=== PATIENT | female | born 1985 | race Hispanic/Latino ===

== ENCOUNTER 2021-01-09 22:34 | Emergency (ER) | payer SELFPAY ==
--- OUTSIDE RECORDS SUMMARY | 2021-01-09 22:38 | XMS REPORT | Continuity of Care Document ---
:1985 Author Organization [facility] t Address [address] [place]. [address] [place] [id number] Care Team Providers Name Role Phone Erin Bearden Attending Clinician Problems This patient has no known problems. Allergies, Adverse Reactions, Alerts This patient has no known allergies or adverse reactions. Medications This patient has no known medications. Procedures This patient has no known procedures. Encounters Start End Encounter Admission Attending Care Care Encounter Source Date/Time Date/Time Type Type Clinicians Facility Department ID 2020-12-24 2020-12-24 Emergency VALERY Camargo [id number] 16:49:00 18:54:00 Ruthann Saenz [id number] [place] [id number] [place] [id number] Results This patient has no known results.
[2021-01-09 23:14] LABS: Absolute Lymphocytes (CBC) 1.3 K/uL (0.7-4.9); Hematocrit 40.9 % (36.0-45.0); Lymphocytes % 24.2 % (15.3-44.8); RBC Red Blood Cell Count 4.18 M/uL (3.86-4.86)
[2021-01-09 23:18] LABS: Protime INR 1.06
[2021-01-09 23:34] LABS: ALT/SGPT 41 U/L (12-78); AST/SGOT 69 U/L (15-37); Albumin 2.9 g/dL (3.4-5.0); Alkaline Phosphatase 118 U/L (45-117); BUN Blood Urea Nitrogen 5 mg/dL (7-18); Bicarbonate 23 mmol/L (21-32); Bilirubin Direct 0.1 mg/dL (0-0.2); Bilirubin Total 0.3 mg/dL (0.2-1.0); Glucose Level 87 mg/dL (74-106); Phenytoin (Dilantin) Level < 0.4 ug/mL (10.0-20.0); Potassium 3.8 mmol/L (3.5-5.1); Protein, Total 6.8 g/dL (6.4-8.2); Sodium Level 143 mmol/L (136-145); Valproic Acid (Depakene) Level < 3.0 ug/mL (50-100)
[2021-01-09] MEDS ORDERED: NA CHLORIDE 0.9% 1,000 ML ONE (23:56)
--- NOTE | 2021-01-10 00:56 | EDPHYS ---
Physician Documentation [facility] Name: Krysta Barrera Age: 35 yrs Sex: Female : 1985 Arrival Date: 01/09/2021 Time: 22:36 Bed 5 Private MD: ED Physician oSnny Jackson HPI: 01/09 23:25 This 35 yrs old Female presents to ER via EMS with complaints of Seizure. mh7 23:25 The patient presents after having a single isolated seizure, that lasted an unknown mh7 period of time. Character of seizure(s): Loss of consciousness: the patient experienced loss of consciousness, brief, Motor activity: generalized, shaking all over, Incontinence: none, Apnea: the patient did not experience apnea, Circulation: the patient did not experience evidence of pulse disturbance, Eye movements: are unknown. Seizure onset: today. Context: the seizure(s) was witnessed, by co-worker(s), occurred at work, occurred while the patient was working, Contributing factors: suspected or documented drug use, cocaine. Seizure Hx: Original onset: 3 year(s) ago. Associated injury: The patient did not suffer any apparent associated injury. Current symptoms: Currently, the patient is not experiencing any symptoms, the patient feels back to baseline. The patient has experienced similar episodes in the past, a few times. Patient reports having 3 seizures in the past that started a few years ago. She admits to cocaine use 2 days ago. She does not know the names of her medications states that they are in her purse which is still at her job.. 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 - Social history:: Smoking status: Patient reports the use of cigarette tobacco products, 7 sticks/day, Patient uses alcohol, every [address], cocaine. ROS: 23:25 Constitutional: Negative for fever, chills, and weight loss, Eyes: Negative for injury, mh7 pain, redness, and discharge, ENT: Negative for injury, pain, and discharge, Neck: Negative for injury, pain, and swelling, Cardiovascular: Negative for chest pain, palpitations, and edema, Respiratory: Negative for shortness of breath, cough, wheezing, and pleuritic chest pain, Abdomen/GI: Negative for abdominal pain, nausea, vomiting, diarrhea, and constipation, Back: Negative for injury and pain, : Negative for injury, bleeding, discharge, and swelling, MS/Extremity: Negative for injury and deformity, Skin: Negative for injury, rash, and discoloration. 23:25 Psych: Negative for depression, anxiety, suicide ideation, homicidal ideation, and hallucinations, Allergy/Immunology: Negative for hives, rash, and allergies, Endocrine: Negative for neck swelling, polydipsia, polyuria, polyphagia, and marked weight changes, Hematologic/Lymphatic: Negative for swollen nodes, abnormal bleeding, and unusual bruising. 23:25 Neuro: Negative for dizziness, gait disturbance, headache, hearing loss, numbness, speech changes, syncope, near syncope, tingling, tinnitus, tremor, visual changes, weakness. Exam: 23:25 Constitutional: This is a well developed, well nourished patient who is awake, alert, mh7 and in no acute distress. Head/Face: Normocephalic, atraumatic. Eyes: Pupils equal round and reactive to light, extra-ocular motions intact. Lids and lashes normal. Conjunctiva and sclera are non-icteric and not injected. Cornea within normal limits. Periorbital areas with no swelling, redness, or edema. ENT: Nares patent. No nasal discharge, no septal abnormalities noted. Tympanic membranes are normal and external auditory canals are clear. Oropharynx with no redness, swelling, or masses, exudates, or evidence of obstruction, uvula midline. Mucous membranes moist. Neck: Trachea midline, no thyromegaly or masses palpated, and no cervical lymphadenopathy. Supple, full range of motion without nuchal rigidity, or vertebral point tenderness. No Meningismus. Chest/axilla: Normal chest wall appearance and motion. Nontender with no deformity. No lesions are appreciated. Cardiovascular: Regular rate and rhythm with a normal S1 and S2. No gallops, murmurs, or rubs. Normal PMI, no JVD. No pulse deficits. Respiratory: Lungs have equal breath sounds bilaterally, clear to auscultation and percussion. No rales, rhonchi or wheezes noted. No increased work of breathing, no retractions or nasal flaring. Abdomen/GI: Soft, non-tender, with normal bowel sounds. No distension or tympany. No guarding or rebound. No evidence of tenderness throughout. Back: No spinal tenderness. No costovertebral tenderness. Full range of motion. Skin: Warm, dry with normal turgor. Normal color with no rashes, no lesions, and no evidence of cellulitis. MS/ Extremity: Pulses equal, no cyanosis. Neurovascular intact. Full, normal range of motion. Neuro: Awake and alert, GCS 15, oriented to person, place, time, and situation. Cranial nerves II-XII grossly intact. Motor strength 5/5 in all extremities. Sensory grossly intact. Cerebellar exam normal. Normal gait. Psych: Awake, alert, with orientation to person, place and time. Behavior, mood, and affect are within normal limits. Vital Signs: 22:30 BP 111 / 85; Pulse 112; Resp 16; Temp 98.1; Pulse Ox 99% ; Weight 55.34 kg; Height 5 rr5 ft. 5 in. (165.10 cm); Pain 0/10; 23:55 BP 121 / 70; Pulse 95; Resp 16; Pulse Ox 99% ; rr5 01/10 00:51 BP 125 / 62; Pulse 90; Resp 16; Pulse Ox 99% ; rr5 01/09 22:30 Body Mass Index 20.30 (55.34 kg, 165.10 cm) rr5 [place] Coma Score: 01/09 22:32 Eye Response: spontaneous(4). Verbal Response: confused(4). Motor Response: obeys rr5 commands(6). Total: 14. MDM: 01/10 00:51 Differential diagnosis: drug overdose, seizure, Pseudoseizures. Data reviewed: vital mh7 signs, nurses notes, EMS record, lab test result(s), CBC, electrolytes. Data interpreted: Pulse oximetry: on room air is 99 %. Interpretation: normal. Counseling: I had a detailed discussion with the patient and/or guardian regarding: the historical points, exam findings, and any diagnostic results supporting the discharge/admit diagnosis, lab results, to return to the emergency department if symptoms worsen or persist or if there are any questions or concerns that arise at home. Response to treatment: the patient's symptoms have resolved after treatment, the patient's blood pressure is in an acceptable range, mental status has returned to baseline, the patient no longer shows bradycardia, the patient is not short of breath, the patient is not tachycardic, the patient's pain is gone, the patient's temperature has normalized. Refusal of service: The patient/guardian displays adequate decision making capability and despite a detailed discussion of alternatives, benefits, risks, and consequences refuses: CT Scan, Medications, Urine, UDS. 00:55 Patient medically screened. [facility] 01/09 22:54 Order name: CBC with Diff [facility] 01/09 22:54 Order name: Basic Metabolic Panel [facility] 01/09 22:54 Order name: Protime (+inr); Complete Time: 23:34 [facility] 01/09 22:54 Order name: Ptt, Activated; Complete Time: 23:34 [facility] 01/09 22:54 Order name: LFT's; Complete Time: 23:44 [facility] 01/09 22:54 Order name: Acetaminophen; Complete Time: 23:44 [facility] 01/09 22:54 Order name: Salicylate; Complete Time: 23:44 [facility] 01/09 22:54 Order name: Dilantin; Complete Time: 23:44 [facility] 01/09 22:54 Order name: Carbamazepine (tegretol); Complete Time: 23:44 [facility] 01/09 22:54 Order name: Valproic Acid (depakote); Complete Time: 23:44 [facility] 01/09 22:54 Order name: CBC with Automated Diff; Complete Time: 23:34 [facility] 01/09 22:54 Order name: Basic Metabolic Panel; Complete Time: 23:44 [facility] 01/09 22:56 Order name: Glucose, Ancillary Testing; Complete Time: 23:34 [facility] 01/09 22:54 Order name: EKG - Nurse/Tech; Complete Time: 23:02 [facility] 01/10 00:08 Order name: Test, Serum; Complete Time: 00:54 [facility] Administered Medications: 01/09 23:41 Drug: NS 0.9% 1000 ml Route: IV; Rate: 1 bolus; Site: left antecubital; mg2 01/10 00:30 Follow up: Response: No adverse reaction; IV Status: Completed infusion; IV Intake: rr5 1000ml Disposition: 01/10/21 00:55 Patient has left against medical advice. Impression: Seizure. - Patients states they are going to Home. - Condition is Stable. - Discharge Instructions: Seizure, Adult, [id number]. Follow up: Private Physician; When: 1 - 2 days; Reason: Worsening of condition, Recheck today's complaints, Continuance of care, Re-evaluation by your physician. Follow up: Mayank Jimenez MD; When: 1 - 2 days; Reason: Worsening of condition, Recheck today's complaints. - Problem is an acute exacerbation. - Symptoms have improved. Signatures: Dispatcher [employer] EDMS Vinay Torres RN RN mg2 Ayaan Moreno RN RN rr5 Sonny Jackson MD MD mh7 Corrections: (The following items were deleted from the chart) 00:55 00:55 01/10/2021 00:55 Patients has left against medical advice. Impression: Seizure. mg2 Patient states they are going to Home. Condition is Stable. Follow up: Private Physician; When: 1 - 2 days; Reason: Worsening of condition, Recheck today's complaints, Continuance of care, Re-evaluation by your physician. Follow up: Mayank Jimenez; When: 1 - 2 days; Reason: Worsening of condition, Recheck today's complaints. Problem is an acute exacerbation. Symptoms have improved. mh7
--- NOTE | 2021-01-10 00:56 | ER ---
Nurse's Notes [facility] Name: Krysta Barrera Age: 35 yrs Sex: Female : 1985 Arrival Date: 01/09/2021 Time: 22:36 Bed 5 Private MD: Diagnosis: Seizure Presentation: 01/09 22:30 Chief complaint: EMS states: witnessed seizure from her co workers upward rolling of rr5 eyeball and stiffening of extremities lasted for a minute. when we arrived at the scene patient is on post ictal stage, confused, pupils dilated. 22:30 Coronavirus screen: Client denies travel out of the [place] in the last 14 days. At this rr5 time, the client does not indicate any symptoms associated with coronavirus-19. Ebola Screen: Patient negative for fever greater than or equal to 101.5 degrees Fahrenheit, and additional compatible Ebola Virus Disease symptoms Patient denies exposure to infectious person. Patient denies travel to an Ebola-affected area in the 21 days before illness onset. Initial Sepsis Screen: Does the patient meet any 2 criteria? No. Patient's initial sepsis screen is negative. Does the patient have a suspected source of infection? No. Patient's initial sepsis screen is negative. Risk Assessment: Do you want to hurt yourself or someone else? Patient reports no desire to harm self or others. Onset of symptoms was January 09, 2021 at 22:00. Care prior to arrival: IV initiated. 18 GA, in the right antecubital area, Glucose check: 91. 22:30 Method Of Arrival: EMS: [facility] rr5 22:30 Acuity: DENILSON 3 rr5 HOME HEALTH OCCUPATIONAL THERAPIST: 22:43 [facility] 2019 rr5 Historical: - Allergies: 22:39 No Known Allergies; rr5 - Home Meds: 22:39 seizure medication [Active]; rr5 - PMHx: 22:39 Anemia; Seizures; rr5 - PSHx: 22:39 None; rr5 - Immunization history:: Adult Immunizations up to date. - Social history:: Smoking status: Patient reports the use of cigarette tobacco products, 7 sticks/day, Patient uses alcohol, every [address], cocaine. Screenin:40 Abuse screen: Denies threats or abuse. Denies injuries from another. Nutritional rr5 screening: No deficits noted. Tuberculosis screening: No symptoms or risk factors identified. Fall Risk IV access (20 points). Mental Status- Overestimates/Forgets Limitations (15 pts.). Total [place] Fall Scale indicates Low Risk Score (25-44 pts). Fall prevention measures have been instituted. Side Rails Up X 2 Placed close to Nursing Station Frequent Obs/Assesments occuring As available Patient and Family Educated on Fall Prevention Program and strategies. Assessment: 22:30 General: Appears in no apparent distress. comfortable, Behavior is calm, cooperative, rr5 appropriate for age. Pain: Denies pain. Neuro: Level of Consciousness is awake, obeys commands, confused, Oriented to person, place. Cardiovascular: Capillary refill < 3 seconds Patient's skin is warm and dry. Respiratory: Airway is patent Respiratory effort is even, unlabored, Respiratory pattern is regular, symmetrical. GI: No signs and/or symptoms were reported involving the gastrointestinal system. : No signs and/or symptoms were reported regarding the genitourinary system. EENT: positive tongue bite. 22:30 Derm: Skin is intact, is healthy with good turgor, Skin temperature is warm. rr5 Musculoskeletal: Capillary refill < 3 seconds. 23:34 Reassessment: patient is refusing to give urine or to do more tests. mg2 23:57 Reassessment: Patient appears in no apparent distress at this time. Patient is alert, rr5 oriented x 3, equal unlabored respirations, skin warm/dry/pink. 01/10 00:48 Reassessment: patient refused to do further tests and treatment. provider informed and mg2 AMA advised. patient well informed about the risks. she said her boss is waiting outside and she has no other ride, AMA signed by the patient. 00:51 Reassessment: Patient appears in no apparent distress at this time. AMA form signed no rr5 complaints made. Vital Signs: 01/09 22:30 BP 111 / 85; Pulse 112; Resp 16; Temp 98.1; Pulse Ox 99% ; Weight 55.34 kg; Height 5 rr5 ft. 5 in. (165.10 cm); Pain 0/10; 23:55 BP 121 / 70; Pulse 95; Resp 16; Pulse Ox 99% ; rr5 01/10 00:51 BP 125 / 62; Pulse 90; Resp 16; Pulse Ox 99% ; rr5 01/09 22:30 Body Mass Index 20.30 (55.34 kg, 165.10 cm) rr5 [place] Coma Score: 01/09 22:32 Eye Response: spontaneous(4). Verbal Response: confused(4). Motor Response: obeys rr5 commands(6). Total: 14. ED Course: 22:35 Maintain EMS IV. Dressing intact. Good blood return noted. Site clean \T\ dry. Gauge \T\ rr 5 site: G18 right AC. 22:36 Patient arrived in ED. rr5 22:39 Triage completed. rr5 22:40 Arm band placed on right wrist. rr5 22:42 Sonny Jackson MD is Attending Physician. mh7 22:42 Patient has correct armband on for positive identification. Bed in low position. Call rr5 light in reach. Side rails up X2. Seizure precautions initiated. nuclear monitoring technician on. Pulse ox on. NIBP on. 22:45 Vinay Torres, ANKUSH is Primary Nurse. mg2 22:45 No provider procedures requiring assistance completed. Inserted saline lock: 22 gauge mg2 in left antecubital area, using aseptic technique. Blood collected. 01/10 00:50 IV discontinued, intact, bleeding controlled, No redness/swelling at site. Pressure rr5 dressing applied. 00:54 Mayank Jimenez MD is Referral Physician. health system Administered Medications: 01/09 23:41 Drug: NS 0.9% 1000 ml Route: IV; Rate: 1 bolus; Site: left antecubital; mg2 01/10 00:30 Follow up: Response: No adverse reaction; IV Status: Completed infusion; IV Intake: rr5 1000ml Intake: 00:30 IV: 1000ml; Total: 1000ml. rr5 Outcome: 00:50 AMA AMA form signed rr5 00:50 Condition: stable 00:50 Discharge instructions given to patient, Instructed on discharge instructions, follow up and referral plans. Demonstrated understanding of instructions, follow-up care. 00:55 Patient left the ED. mg2 Signatures: Vinay Torres, ANKUSH RN mg2 Ayaan Moreno RN RN rr5 Sonny Jackson MD MD 7
[2021-01-10 01:35] VITALS: O2SAT 99
[2021-01-10 01:36] VITALS: BP 125/62
== END 2021-01-10 00:55 | disposition left against medical advice (07) ==
LOC: ER 22:34
DX: G40.909 Epilepsy, unspecified, not intractable, without status epilepticus (principal); F17.210 Nicotine dependence, cigarettes, uncomplicated
CPT/HCPCS: 36415; 80048; 80076; 80156; 80164; 80185; 80329; 82947; 84703; 85025; 85610; 85730; 93005; 96360; 99284; J7030

== ENCOUNTER 2021-05-27 21:38 | Emergency (ER) | payer SELFPAY ==
--- OUTSIDE RECORDS SUMMARY | 2021-05-27 21:42 | XMS REPORT | Continuity of Care Document ---
:1985 Author Organization [facility] t Address [address] [place] [address] Dr. Rutherford [address] [place] [id number] Care Team Providers Name Role Phone Erin [...] Clinicians Facility Department ID 2020-12-24 2020-12-24 Emergency Mary Jo [facility] [id number] 16:49:00 18:54:00 Ruthann Saenz [id number] [place] [id number] [place] [id number] [id number] Results This patient has no known results.
[2021-05-27 22:35] LABS: Basophils % 0.6 % (0-1.3); Hematocrit 48.5 % (36.0-45.0); MPV 8.1 fL (7.6-11.3); RBC Red Blood Cell Count 4.92 M/uL (3.86-4.86)
[2021-05-27] MEDS ORDERED: ONDANSETRON 4 MG/2 ML VIAL ONE (22:54)
[2021-05-27] MEDS ORDERED: NA CHLORIDE 0.9% 1,000 ML ONE (22:54)
[2021-05-27] MEDS ORDERED: PANTOPRAZOLE 40 MG INJ ONE (22:55)
[2021-05-27 23:06] LABS: ALT/SGPT 53 U/L (12-78); AST/SGOT 85 U/L (15-37); Albumin 3.9 g/dL (3.4-5.0); Alkaline Phosphatase 145 U/L (45-117); BUN Blood Urea Nitrogen 10 mg/dL (7-18); Bicarbonate 32 mmol/L (21-32); Bilirubin Direct 0.5 mg/dL (0-0.2); Bilirubin Total 1.5 mg/dL (0.2-1.0); Glucose Level 117 mg/dL (74-106); Lipase 127 U/L (73-393); Protein, Total 8.3 g/dL (6.4-8.2); Sodium Level 135 mmol/L (136-145)
[2021-05-27 23:07] LABS: Potassium 2.7 mmol/L (3.5-5.1)
[2021-05-27] MEDS ORDERED: POTASSIUM CL SA 10 MEQ TAB PO ONE ×2 (23:33→23:34)
--- NOTE | 2021-05-27 23:39 | EDPHYS ---
Physician Documentation [facility] Name: Krysta Barrera Age: 36 yrs Sex: Female : 1985 Arrival Date: 05/27/2021 Time: 21:41 Bed 16 Private MD: ED Physician Jayson Jeter HPI: 05/27 23:26 This 36 yrs old Female presents to ER via Ambulatory with complaints of kb Vomiting, Decreased Appetite, Abdominal Pain. 23:26 The patient presents to the emergency department with nausea, vomiting, abdominal pain. kb Severity of symptoms: At their worst the symptoms were moderate in the emergency department the symptoms are unchanged. The patient has experienced similar episodes in the past, a few times. The patient has not recently seen a physician. 23:28 Onset: The symptoms/episode began/occurred 36 hour(s) ago. Possible causes: unknown. kb The symptoms are aggravated by nothing. The symptoms are alleviated by nothing. Associated signs and symptoms: Pertinent positives: abdominal pain, nausea, vomiting, Pertinent negatives: anorexia, belching, constipation, diarrhea, dysuria, fever, flatulence, GI bleeding, hematuria, vaginal discharge. Pt reports epigastric pain, nausea and vomiting that started 36 hours ago. States she is unable to tolerate anything by mouth.. 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 Flu vaccine is not up to date. - Social history:: Smoking status: Patient reports the use of cigarette tobacco products, smokes one-half pack cigarettes per day. ROS: 23:24 Constitutional: Negative for fever, chills, and weight loss. kb 23:24 Abdomen/GI: Positive for abdominal pain, nausea and vomiting, Negative for diarrhea. 23:24 All other systems are negative. Exam: 23:25 Constitutional: This is a well developed, well nourished patient who is awake, alert, kb and in no acute distress. Head/Face: Normocephalic, atraumatic. ENT: Moist Mucous membranes Cardiovascular: Regular rate and rhythm with a normal S1 and S2. No gallops, murmurs, or rubs. No pulse deficits. Respiratory: Respirations even and unlabored. No increased work of breathing, no retractions or nasal flaring. Skin: Warm, dry with normal turgor. Normal color. MS/ Extremity: Pulses equal, no cyanosis. Neurovascular intact. Full, normal range of motion. Neuro: Awake and alert, GCS 15, oriented to person, place, time, and situation. Moves all extremities. Normal gait. Psych: Awake, alert, with orientation to person, place and time. Behavior, mood, and affect are within normal limits. 23:25 Abdomen/GI: Inspection: abdomen appears normal, Bowel sounds: normal, in all quadrants, Palpation: soft, in all quadrants, mild abdominal tenderness, in the epigastric area. Vital Signs: 21:47 BP 124 / 95; Pulse 101; Resp 18 S; Temp 97.5(TE); Pulse Ox 98% on R/A; Weight 52.16 kg ca1 (R); Height 5 ft. 5 in. (165.10 cm) (R); Pain 8/10; 22:28 BP 119 / 87; Pulse 74; Resp 16; Temp 98.8(O); Pulse Ox 99% on R/A; Pain 9/10; fu 21:47 Body Mass Index 19.14 (52.16 kg, 165.10 cm) ca1 MDM: 22:02 Patient medically screened. kb 23:23 Data reviewed: vital signs, nurses notes. Data interpreted: Pulse oximetry: on room air kb is 99 %. Interpretation: normal. 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 23:44 ED course: Pt is feeling better. Will follow up with her GI tomorrow . kb 05/27 22:02 Order name: Basic Metabolic Panel; Complete Time: 23:08 kb 05/27 22:02 Order name: CBC with Diff; Complete Time: 22:37 kb 05/27 22:02 Order name: Hepatic Function; Complete Time: 23:08 kb 05/27 22:02 Order name: Lipase; Complete Time: 23:08 kb 05/27 22:02 Order name: IV Saline Lock; Complete Time: 22:21 kb 05/27 22:02 Order name: Labs collected and sent; Complete Time: 22:21 kb Administered Medications: 22:42 Drug: NS 0.9% 1000 ml Route: IV; Rate: 1000 ml; Site: left antecubital; fu 23:16 Follow up: Response: No adverse reaction; IV Intake: 1000ml fu 05/28 00:00 Follow up: Response: No adverse reaction; IV Intake: 1000ml fu 05/27 22:42 Drug: Zofran (Ondansetron) 4 mg Route: IVP; Site: left antecubital; fu 23:42 Follow up: Response: Nausea is decreased fu 22:42 Drug: ProTONIX (pantoprazole) 40 mg Route: IVP; Site: left antecubital; fu 23:42 Follow up: Response: No adverse reaction fu 23:16 Drug: Potassium Chloride 40 mEq Route: PO; fu 05/28 00:14 Follow up: Response: No adverse reaction fu Disposition Summary: 05/27/21 23:38 Discharge Ordered Location: Home kb Condition: Stable kb Diagnosis - Nausea with vomiting, unspecified kb - Hypokalemia kb Followup: kb - With: Emergency Department - When: As needed - Reason: Worsening of condition Followup: kb - With: Private Physician - When: 2 - 3 days - Reason: Recheck today's complaints, Continuance of care, Re-evaluation by your physician Discharge Instructions: - Discharge Summary Sheet kb - Nausea and Vomiting, Adult, [id number] kb Forms: - Medication Reconciliation Form kb - Thank You Letter kb - Antibiotic Education kb - Prescription Opioid Use kb Prescriptions: - Zofran 4 mg Oral Tablet - take 1 tablet by ORAL route every 6 hours As needed; 20 tablet; Refills: 0, kb Product Selection Permitted - dicyclomine 20 mg Oral Tablet - take 1 tablet by ORAL route 4 times per day As needed; 20 tablet; Refills: 0, kb Product Selection Permitted Addendum: 05/30/2021 15:27 Co-signature as Attending Physician, Jayson Jeter MD I agree with the assessment and t w4 plan of care. Signatures: Dispatcher [employer] Victoria Guardado, SOLUTION MAKE UP OPERATOR-C SOLUTION MAKE UP OPERATOR-Danny Barrow, RN RN Jayson Bowen MD MD tw4 Radha Ybarra RN RN ca1 Corrections: (The following items were deleted from the chart) 05/27 23:29 23:26 The patient has not experienced similar symptoms in the past, kb kb
--- NOTE | 2021-05-27 23:39 | ER ---
Nurse's Notes [facility] Name: Krysta Barrera Age: 36 yrs Sex: Female : 1985 Arrival Date: 05/27/2021 Time: 21:41 Bed 16 Private MD: Diagnosis: Nausea with vomiting, unspecified;Hypokalemia Presentation: 05/27 21:47 Chief complaint: Patient states: I am not able to keep nothing down for the past 36 ca1 hrs. N/V/Abdominal pain x 2 days. Has a GI issues, reflux. Coronavirus screen: Client denies travel out of the [place] in the last 14 days. nausea, vomiting. Client presents with at least one sign or symptom that may indicate coronavirus-19. Standard/surgical mask placed on the client. Provider contacted for isolation considerations. Ebola Screen: Patient negative for fever greater than or equal to 101.5 degrees Fahrenheit, and additional compatible Ebola Virus Disease symptoms Patient denies exposure to infectious person. Patient denies travel to an Ebola-affected area in the 21 days before illness onset. No symptoms or risks identified at this time. Initial Sepsis Screen: Does the patient meet any 2 criteria? No. Patient's initial sepsis screen is negative. Does the patient have a suspected source of infection? No. Patient's initial sepsis screen is negative. Risk Assessment: Do you want to hurt yourself or someone else? Patient reports no desire to harm self or others. Onset of symptoms was May 27, 2021. 21:47 Method Of Arrival: Ambulatory ca1 21:47 Acuity: DENILSON 3 ca1 GRAIN COMBINER: 21:50 LMP N/A - Irregular menses ca1 Historical: - Allergies: 21:50 Unknown medication to increase appetite; ca1 - Home Meds: 21:50 seizure medication [Active]; ca1 - PMHx: 21:50 Anemia; Seizures; ca1 - PSHx: 21:50 None; ca1 - Immunization history:: Client reports having NOT received the Covid vaccine. Flu vaccine is not up to date. - Social history:: Smoking status: Patient reports the use of cigarette tobacco products, smokes one-half pack cigarettes per day. Screenin:30 Abuse screen: Denies threats or abuse. Nutritional screening: No deficits noted. fu Tuberculosis screening: No symptoms or risk factors identified. Fall Risk None identified. Assessment: 22:22 General: Appears uncomfortable, Behavior is calm, cooperative, appropriate for age, fu Reports Denies fever. Pain: Complains of pain in abdomen Pain does not radiate. Pain currently is 8 out of 10 on a pain scale. Pain: Quality of pain is described as burning, Pain began 36 hours ago Is intermittent. Neuro: Level of Consciousness is awake, alert, obeys commands, Oriented to person, place, time, situation, Moves all extremities. Gait is steady, Speech is normal, Facial symmetry appears normal. Cardiovascular: Denies chest pain, syncope. Respiratory: Respiratory effort is even, unlabored, Respiratory pattern is regular. GI: Abdomen is flat, Last BM was May 26, 2021. Reports nausea, vomiting, abdominal pain. : No signs and/or symptoms were reported regarding the genitourinary system. EENT: No signs and/or symptoms were reported regarding the EENT system. Derm: Skin is intact, Skin is normal. 23:19 Reassessment: Patient appears in no apparent distress at this time. Patient and/or fu family updated on plan of care and expected duration. Pain level reassessed. Patient is alert, oriented x 3, equal unlabored respirations, skin warm/dry/pink. nausea improving as stated by patient. Vital Signs: 21:47 BP 124 / 95; Pulse 101; Resp 18 S; Temp 97.5(TE); Pulse Ox 98% on R/A; Weight 52.16 kg ca1 (R); Height 5 ft. 5 in. (165.10 cm) (R); Pain 8/10; 22:28 BP 119 / 87; Pulse 74; Resp 16; Temp 98.8(O); Pulse Ox 99% on R/A; Pain 9/10; fu 21:47 Body Mass Index 19.14 (52.16 kg, 165.10 cm) ca1 ED Course: 21:41 Patient arrived in ED. es 21:50 Triage completed. ca1 21:50 Arm band placed on right wrist. ca1 22:01 [facility] Cat [facility]C [facility] kb 22:01 Jayson Jeter MD is Attending Physician. kb 22:06 Danny Scott RN is Primary Nurse. fu 22:15 Inserted saline lock: 22 gauge in left antecubital area, using aseptic technique. Blood fu collected. 22:21 Basic Metabolic Panel Sent. fu 22:21 CBC with Diff Sent. fu 22:21 Hepatic Function Sent. fu 22:21 Lipase Sent. fu 22:30 Patient has correct armband on for positive identification. Bed in low position. Call fu light in reach. Side rails up X 1. Pulse ox on. NIBP on. Warm blanket given. 05/28 00:00 No provider procedures requiring assistance completed. IV discontinued, bleeding fu controlled, Pressure dressing applied. Administered Medications: 05/27 22:42 Drug: NS 0.9% 1000 ml Route: IV; Rate: 1000 ml; Site: left antecubital; fu 23:16 Follow up: Response: No adverse reaction; IV Intake: 1000ml fu 05/28 00:00 Follow up: Response: No adverse reaction; IV Intake: 1000ml fu 05/27 22:42 Drug: Zofran (Ondansetron) 4 mg Route: IVP; Site: left antecubital; fu 23:42 Follow up: Response: Nausea is decreased fu 22:42 Drug: ProTONIX (pantoprazole) 40 mg Route: IVP; Site: left antecubital; fu 23:42 Follow up: Response: No adverse reaction fu 23:16 Drug: Potassium Chloride 40 mEq Route: PO; fu 05/28 00:14 Follow up: Response: No adverse reaction fu Intake: 05/27 23:16 IV: 1000ml; Total: 1000ml. fu 05/28 00:00 IV: 1000ml; Total: 2000ml. fu Outcome: 05/27 23:38 Discharge ordered by MD. fernandez 05/28 00:15 Patient left the ED. fu Signatures: Victoria Cat FNP-C FNP-Ángela Kaur Felix, RN RN fu Radha Ybarra RN RN ca1
[2021-05-28 01:48] VITALS: BP 119/87; TEMP 98.8; O2SAT 99
== END 2021-05-28 00:15 | disposition home or self-care (01) ==
LOC: ER 21:38
DX: E87.6 Hypokalemia (principal); G40.909 Epilepsy, unspecified, not intractable, without status epilepticus; F17.210 Nicotine dependence, cigarettes, uncomplicated
CPT/HCPCS: 36415; 80048; 80076; 83690; 85025; 96374; 96375; 99284; C9113; J2405; J7030

== ENCOUNTER 2021-05-30 19:10 | Emergency (ER) | payer SELFPAY ==
--- OUTSIDE RECORDS SUMMARY | 2021-05-30 19:21 | XMS REPORT | Continuity of Care Document ---
:1985 Author Organization [facility] t Address [address] [place] [address] Dr. Rutherford [address] [place] [id number] Care Team Providers Name Role Phone Erin [...] Department ID 2020-12-24 2020-12-24 Emergency Mary Jo [facility] [id number] 16:49:00 18:54:00 Ruthann Saenz [id number] [place] [id number] [place] [id number] [id number] Results This patient has no known results.
[2021-05-30 20:10] LABS: Absolute Lymphocytes (CBC) 0.8 K/uL (0.7-4.9); Basophils % 1.3 % (0-1.3); Hematocrit 40.8 % (36.0-45.0); Lymphocytes % 18.4 % (15.3-44.8); MPV 8.1 fL (7.6-11.3); RBC Red Blood Cell Count 4.25 M/uL (3.86-4.86)
[2021-05-30 20:22] LABS: Albumin 3.3 g/dL (3.4-5.0); Bilirubin Direct 0.5 mg/dL (0-0.2); Bilirubin Total 1.1 mg/dL (0.2-1.0); Protein, Total 7.1 g/dL (6.4-8.2)
[2021-05-30 20:26] LABS: Potassium 2.5 mmol/L (3.5-5.1)
[2021-05-30 20:28] LABS: Protime INR 1.03
[2021-05-30] MEDS ORDERED: FAMOTIDINE 20 MG/2 ML VIAL IV ONE (20:30)
[2021-05-30] MEDS ORDERED: NA CHLORIDE 0.9% 1,000 ML ONE ×2 (20:30→22:16)
[2021-05-30] MEDS ORDERED: ONDANSETRON 4 MG/2 ML VIAL ONE (20:30)
[2021-05-30] MEDS ORDERED: MORPHINE 2 MG/ML SYR ONE (20:52)
--- NOTE | 2021-05-30 21:15 | RAD REPORT ---
EXAM DESCRIPTION: CT - Head Brain Wo Cont - 05/30/2021 8:48 pm CLINICAL HISTORY: Syncope;Trauma COMPARISON: No comparisons TECHNIQUE: Axial 5 mm thick images of the head were obtained without IV contrast. All CT scans are performed using dose optimization technique as appropriate and may include automated exposure control or mA/KV adjustment according to patient size. FINDINGS: No intracranial hemorrhage, mass, edema or shift of mid-line structures. No acute infarcti on changes seen. No abnormal extra-axial fluid collections. Ventricles are normal. Mastoid air cells and visualized portions of the paranasal sinuses are clear. No acute bony findings. IMPRESSION: Negative non-contrast CT head examination.
[2021-05-30] MEDS ORDERED: POTASSIUM 25 MEQ EFFERV TAB ONE (21:18)
[2021-05-30] MEDS ORDERED: KCL 20 MEQ/100 mL IVPB 20 MEQ/100 ML BAG IV ONE (21:18)
--- NOTE | 2021-05-30 21:18 | RAD REPORT ---
EXAM DESCRIPTION: CT - Abdomen Pelvis W Contrast - 05/30/2021 8:52 pm CLINICAL HISTORY: Abd pain;Nausea / vomiting COMPARISON: No comparisons TECHNIQUE: Biphasic, helical CT imaging of the abdomen and pelvis was performed following 100 ml non -ionic IV contrast. No oral contrast administered. All CT scans are performed using dose optimization technique as appropriate and may include automated exposure control or mA/KV adjustment according to patient size. FINDINGS: No suspicious findings in the lung bases. The liver, spleen, and pancreas show no suspicious focal findings. Mild diffuse fatty infiltration of the liver is present. Gallbladder and biliary tree are also without suspicious finding. Symmetric renal function is seen with no hydronephrosis or suspicious renal mass. No pyelonephritis o r acute parenchymal process. No bladder abnormalities. No adrenal abnormalities. Uterus and ovaries s how no suspicious findings. No dilated bowel loops or bowel wall thickening. Appendix is normal. No free air, free fluid or infla mmatory stranding. No hernia, mass or bulky lymphadenopathy. No suspicious bony findings. IMPRESSION: Contrast enhanced CT abdomen and pelvis showing no significant or suspicious finding.
[2021-05-30] MEDS ORDERED: NA CHLORIDE 0.9% 250 ML ONE (21:53)
[2021-05-30 22:05] LABS: Urine Blood Negative (Negative); Urine Glucose Negative (Negative); Urine Protein Negative (Negative); Urine pH 7.5 (5.0-7.0)
--- NOTE | 2021-05-30 22:06 | RAD REPORT ---
EXAM DESCRIPTION: RAD - Chest Single View - 05/30/2021 9:27 pm CLINICAL HISTORY: syncope COMPARISON: None TECHNIQUE: AP portable chest image was obtained 05/30/2021 9:27 pm . FINDINGS: Lungs are clear. Nipple shadows overlie the lower chest. Heart and vasculature are normal. No measurable pleural effusion and no pneumothorax. No acute bony abnormality seen. No acute aortic findings suspected. IMPRESSION: No acute cardiopulmonary process.
[2021-05-30 22:33] LABS: Barbiturates NEGATIVE (NEGATIVE); Benzodiazepines NEGATIVE (NEGATIVE); Cocaine NEGATIVE (NEGATIVE); METHAMPHETAM NEGATIVE (NEGATIVE); Methadone NEGATIVE (NEGATIVE); Opiates NEGATIVE (NEGATIVE); Phencyclidine NEGATIVE (NEGATIVE); THC Cannibis NEGATIVE (NEGATIVE)
[2021-05-30 23:18] LABS: Urine Bacteria 20-50 /HPF (<20); Urine Mucus 1+ /HPF (NONE SEEN); Urine RBC <5 /HPF (NONE SEEN)
--- NOTE | 2021-05-30 23:34 | EDPHYS ---
Physician Documentation [facility] Name: Krysta Barrera Age: 36 yrs Sex: Female : 1985 Arrival Date: 05/30/2021 Time: 19:20 Bed 18 Private MD: ED Physician Sonny Jackson HPI: 05/30 20:25 This 36 yrs old Female presents to ER via EMS with complaints of Dizziness. mh7 20:25 The patient presents with dizziness, feeling faint, lightheadedness. Onset: The mh7 symptoms/episode began/occurred just prior to arrival, today. Context: occurred at work, occurred while the patient was standing, just prior to the episode the patient experienced abdominal pain, lightheadedness, nausea. Modifying factors: The symptoms are alleviated by nothing, the symptoms are aggravated by nothing. Associated signs and symptoms: Pertinent positives: abdominal pain, head injury, nausea, syncope, Pertinent negatives: agitation, ataxia, blurred vision, chest pain, combativeness, confusion, diaphoresis, focal weakness, numbness, palpitations, seizure, shortness of breath, tingling, vomiting. Severity of symptoms: At their worst the symptoms were moderate today, in the emergency department the symptoms have improved moderately. Patient's baseline: Neuro: alert and fully oriented, Motor: no deficits, Ambulation: walks without assistance, Speech: normal. The patient has been recently seen at the [facility] Emergency Department, this week. 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 - Social history:: Smoking status: Patient reports the use of cigarette tobacco products, 3 STICKS. ROS: 20:25 Constitutional: Negative for fever, chills, and weight loss, Eyes: Negative for injury, mh7 pain, redness, and discharge, ENT: Negative for injury, pain, and discharge, Neck: Negative for injury, pain, and swelling, Cardiovascular: Negative for chest pain, palpitations, and edema, Respiratory: Negative for shortness of breath, cough, wheezing, and pleuritic chest pain, Back: Negative for injury and pain, : Negative for injury, bleeding, discharge, and swelling, MS/Extremity: Negative for injury and deformity, Skin: Negative for injury, rash, and discoloration, Neuro: Negative for headache, weakness, numbness, tingling, and seizure, Psych: Negative for depression, anxiety, suicide ideation, homicidal ideation, and hallucinations, Allergy/Immunology: Negative for hives, rash, and allergies, Endocrine: Negative for neck swelling, polydipsia, polyuria, polyphagia, and marked weight changes, Hematologic/Lymphatic: Negative for swollen nodes, abnormal bleeding, and unusual bruising. Exam: 20:25 Head/Face: Normocephalic, atraumatic. Eyes: Pupils equal round and reactive to light, mh7 extra-ocular motions intact. Lids and lashes normal. Conjunctiva and sclera are non-icteric and not injected. Cornea within normal limits. Periorbital areas with no swelling, redness, or edema. Neck: Trachea midline, no thyromegaly or masses palpated, and no cervical lymphadenopathy. Supple, full range of motion without nuchal rigidity, or vertebral point tenderness. No Meningismus. Chest/axilla: Normal chest wall appearance and motion. Nontender with no deformity. No lesions are appreciated. Cardiovascular: Regular rate and rhythm with a normal S1 and S2. No gallops, murmurs, or rubs. Normal PMI, no JVD. No pulse deficits. Respiratory: Lungs have equal breath sounds bilaterally, clear to auscultation and percussion. No rales, rhonchi or wheezes noted. No increased work of breathing, no retractions or nasal flaring. 20:25 Back: No spinal tenderness. No costovertebral tenderness. Full range of motion. Skin: Warm, dry with normal turgor. Normal color with no rashes, no lesions, and no evidence of cellulitis. MS/ Extremity: Pulses equal, no cyanosis. Neurovascular intact. Full, normal range of motion. Neuro: Awake and alert, GCS 15, oriented to person, place, time, and situation. Cranial nerves II-XII grossly intact. Motor strength 5/5 in all extremities. Sensory grossly intact. Cerebellar exam normal. Normal gait. Psych: Awake, alert, with orientation to person, place and time. Behavior, mood, and affect are within normal limits. 20:25 Constitutional: The patient appears in no acute distress, alert, awake, uncomfortable. 20:25 Abdomen/GI: Inspection: abdomen appears normal, Bowel sounds: normal, in all quadrants, Palpation: moderate abdominal tenderness, in the epigastric area, mass, is not appreciated, rebound tenderness, is not appreciated, voluntary guarding, is not appreciated, involuntary guarding, is not appreciated, no appreciated organomegaly, Rectal exam: the exam is deferred, because of patient request, Indicators: McBurney's point is not tender, Francis's sign is negative, Rovsing's sign is negative, Obturator sign is negative, Psoas sign is negative, Liver: no appreciated palpable abnormalities, Hernia: not appreciated. Vital Signs: 19:20 BP 131 / 90; Pulse 77; Resp 16; Temp 98; Pulse Ox 98% ; Weight 50.35 kg; Height 5 ft. 5 rr5 in. (165.10 cm); Pain 0/10; 21:00 BP 116 / 95; Pulse 80; Resp 17; Pulse Ox 99% ; rr5 22:00 BP 124 / 89; Pulse 76; Resp 17; Pulse Ox 100% ; rr5 23:00 BP 115 / 69; Pulse 70; Resp 15; Pulse Ox 99% ; rr5 05/31 00:00 BP 126 / 80; Pulse 70; Resp 19; Pulse Ox 98% ; rr5 05/30 19:20 Body Mass Index 18.47 (50.35 kg, 165.10 cm) rr5 MDM: 05/30 23:30 Differential diagnosis: cardiac arrhythmia, hypovolemia, idiopathic dizziness, mh7 near-syncope, , syncope, vertigo, Dehydration. Data reviewed: vital signs, nurses notes, lab test result(s), cardiac enzymes, CBC, electrolytes, urinalysis, urine drug screen, EKG, radiologic studies, CT scan, plain films. Data interpreted: Pulse oximetry: on room air is 98 %. Interpretation: normal. Counseling: I had a detailed discussion with the patient and/or guardian regarding: the historical points, exam findings, and any diagnostic results supporting the discharge/admit diagnosis, lab results, radiology results, the need for outpatient follow up, to return to the emergency department if symptoms worsen or persist or if there are any questions or concerns that arise at home. Response to treatment: the patient's symptoms have resolved after treatment, the patient's blood pressure is in an acceptable range, mental status has returned to baseline, the patient no longer shows bradycardia, the patient is not short of breath, the patient is not tachycardic, the patient's pain is gone, the patient's temperature has normalized, the patient is now symptom free, patient is well hydrated. 23:34 Patient medically screened. [facility] 05/30 19:27 Order name: Basic Metabolic Panel; Complete Time: 20:33 [facility] 05/30 19:27 Order name: CBC with Diff; Complete Time: 20:33 [facility] 05/30 19:27 Order name: Hepatic Function; Complete Time: 20:33 [facility] 05/30 19:27 Order name: Lipase; Complete Time: 20:33 [facility] 05/30 20:04 Order name: UDS; Complete Time: 22:35 [facility] 05/30 20:11 Order name: Troponin (emerg Dept Use Only) [facility] 05/30 20:11 Order name: Protime (+inr) [facility] 05/30 20:11 Order name: Ptt, Activated [facility] 05/30 20:12 Order name: Troponin (Emerg Dept Use Only); Complete Time: 22:35 [facility] 05/30 20:12 Order name: Protime (+INR); Complete Time: 20:33 [facility] 05/30 20:12 Order name: PTT, Activated Partial Thromb; Complete Time: 20:33 [facility] 05/30 20:13 Order name: Test, Serum [facility] 05/30 20:14 Order name: Test Serum, Qualitat; Complete Time: 22:35 [facility] 05/30 22:05 Order name: Urine Dipstick-Ancillary; Complete Time: 22:35 [facility] 05/30 19:27 Order name: IV Saline Lock; Complete Time: 19:27 [facility] 05/30 19:27 Order name: Labs collected and sent; Complete Time: 19:27 [facility] 05/30 20:04 Order name: Urine Dipstick-Ancillary (obtain specimen); Complete Time: 22:18 [facility] 05/30 20:04 Order name: EKG - Nurse/Tech; Complete Time: 20:29 [facility] 05/30 20:11 Order name: Chest Single View XRAY; Complete Time: 22:35 [facility] 05/30 20:11 Order name: CT Head Brain wo Cont; Complete Time: 22:35 [facility] 05/30 20:11 Order name: CT Abd/Pelvis - IV Contrast Only; Complete Time: 22:35 [facility] 05/30 22:10 Order name: Urine Microscopic Only [facility] 05/30 22:10 Order name: Urine Microscopic Only; Complete Time: 23:26 EDMS Administered Medications: 20:25 Drug: Pepcid (famotidine) 20 mg Route: IVP; Site: left antecubital; rr5 21:20 Follow up: Response: No adverse reaction rr5 20:28 Drug: Zofran (Ondansetron) 4 mg Route: IVP; Site: left antecubital; rr5 21:25 Follow up: Response: No adverse reaction rr5 20:29 Drug: NS 0.9% 1000 ml Route: IV; Rate: 1000 ml; Site: left antecubital; rr5 21:30 Follow up: Response: No adverse reaction; IV Status: Completed infusion; IV Intake: rr5 1000ml 20:35 Drug: morphine 2 mg {Note: rass 0.} Route: IVP; Site: left antecubital; rr5 21:35 Follow up: Response: No adverse reaction; Pain is decreased; RASS: Alert and Calm (0) rr5 21:05 Drug: Potassium Effervescent Tablet 50 mEq Route: PO; rr5 22:00 Follow up: Response: No adverse reaction rr5 21:06 Drug: Potassium Chloride 20 mEq Route: IV; Rate: calculated rate; Site: right hand; rr5 23:00 Follow up: Response: No adverse reaction; IV Status: Completed infusion; IV Intake: rr5 100ml 23:58 Drug: Cipro (ciprofloxacin) 500 mg Route: PO; rr5 05/31 00:10 Follow up: Response: No adverse reaction rr5 Disposition Summary: 05/30/21 23:34 Discharge Ordered Location: Home [facility] Problem: an ongoing problem [facility] Symptoms: have improved [facility] Condition: Stable [facility] Diagnosis - Dizziness and giddiness mh7 - Nausea with vomiting, unspecified mh7 - Hypokalemia mh7 - UTI/ Urinary tract infection, site not specified [facility] - Upper abdominal pain, unspecified [facility] Followup: [facility] - With: Private Physician - When: 1 - 2 days - Reason: Worsening of condition, Recheck today's complaints, Continuance of care, Re-evaluation by your physician Followup: [facility] - With: Gonzalez Nieto MD - When: 1 - 2 days - Reason: Worsening of condition, Recheck today's complaints Discharge Instructions: - Discharge Summary Sheet [facility] - Dizziness [facility] - Nausea and Vomiting, Adult, [id number] [facility] - Urinary Tract Infection, Adult, [id number] [facility] - Abdominal Pain, Adult, [id number] [facility] - Hypokalemia [facility] Forms: - Medication Reconciliation Form [facility] - Thank You Letter [facility] - Antibiotic Education [facility] - Prescription Opioid Use [facility] Prescriptions: - ondansetron 4 mg Oral tablet,disintegrating - place 1 tablet by TRANSLINGUAL route every 8 hours As needed; 10 tablet; [facility] Refills: 0, Product Selection Permitted - Pepcid 20 mg Oral Tablet - take 1 tablet by ORAL route every 12 hours for 5 days; 10 tablet; Refills: 0, [facility] Product Selection Permitted - Cipro 500 mg Oral Tablet - take 1 tablet by ORAL route every 12 hours for 7 days; 14 tablet; Refills: 0, [facility] Product Selection Permitted Signatures: Dispatcher [employer] Ayaan Campbell, RN RN rr5 Sonny Jackson MD MD [facility]
--- NOTE | 2021-05-30 23:34 | ER ---
Nurse's Notes [facility] Name: Krysta Barrera Age: 36 yrs Sex: Female : 1985 Arrival Date: 05/30/2021 Time: 19:20 Bed 18 Private MD: Diagnosis: Dizziness and giddiness;Nausea with vomiting, unspecified;Hypokalemia;UTI/ Urinary tract infection, site not specified;Upper abdominal pain, unspecified Presentation: 05/30 19:20 Chief complaint: EMS states: about an hour and a half ago patient felt nauseated, rr5 dizzy, light headed. while at work went to the freezer when she got out of the freezer she pass out face down. when we arrived patient is alert alert and oriented BS 126mg/dl systolic BP 110. EKG NSR. Coronavirus screen: Client denies travel out of the [place] in the last 14 days. Ebola Screen: Patient negative for fever greater than or equal to 101.5 degrees Fahrenheit, and additional compatible Ebola Virus Disease symptoms Patient denies exposure to infectious person. Patient denies travel to an Ebola-affected area in the 21 days before illness onset. Initial Sepsis Screen: Does the patient meet any 2 criteria? No. Patient's initial sepsis screen is negative. Does the patient have a suspected source of infection? No. Patient's initial sepsis screen is negative. Risk Assessment: Do you want to hurt yourself or someone else? Patient reports no desire to harm self or others. Onset of symptoms was May 30, 2021. 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 - Social history:: Smoking status: Patient reports the use of cigarette tobacco products, 3 STICKS. Screenin:33 Abuse screen: Denies threats or abuse. Denies injuries from another. Nutritional rr5 screening: No deficits noted. Tuberculosis screening: No symptoms or risk factors identified. Fall Risk Fall in past 12 months (25 points). IV access (20 points). Total Carrasquillo Fall Scale indicates Low Risk Score (25-44 pts). Fall prevention measures have been instituted. Side Rails Up X 2 Placed close to Nursing Station Frequent Obs/Assesments occuring Family Present and informed to notify staff if they need to leave bedside As available Patient and Family Educated on Fall Prevention Program and strategies. Assessment: 19:20 General: Appears in no apparent distress. comfortable, Behavior is calm, cooperative, rr5 appropriate for age. Pain: Denies pain. Neuro: Level of Consciousness is awake, alert, obeys commands, Oriented to person, place, time, Reports dizziness. Cardiovascular: Capillary refill < 3 seconds Patient's skin is warm and dry. Respiratory: Airway is patent Respiratory effort is even, unlabored, Respiratory pattern is regular, symmetrical. GI: Abdomen is round non-distended, Reports nausea, vomiting. : No signs and/or symptoms were reported regarding the genitourinary system. EENT: No signs and/or symptoms were reported regarding the EENT system. Derm: Skin is intact, Skin temperature is warm. Musculoskeletal: Capillary refill < 3 seconds. 20:30 Reassessment: Patient appears in no apparent distress at this time. Patient is alert, rr5 oriented x 3, equal unlabored respirations, skin warm/dry/pink. awaiting for results. 21:30 Reassessment: Patient appears in no apparent distress at this time. Patient is alert, rr5 oriented x 3, equal unlabored respirations, skin warm/dry/pink. 22:30 Reassessment: Patient appears in no apparent distress at this time. Patient is alert, rr5 oriented x 3, equal unlabored respirations, skin warm/dry/pink. awaiting for CT result. 23:00 Reassessment: Patient appears in no apparent distress at this time. Patient and/or rr5 family updated on plan of care and expected duration. Pain level reassessed. Patient is alert, oriented x 3, equal unlabored respirations, skin warm/dry/pink. 05/31 00:00 Reassessment: Patient appears in no apparent distress at this time. Patient is alert, rr5 oriented x 3, equal unlabored respirations, skin warm/dry/pink. discharge instruction given and explained without complaints made Patient states feeling better. Patient states symptoms have improved. Vital Signs: 05/30 19:20 BP 131 / 90; Pulse 77; Resp 16; Temp 98; Pulse Ox 98% ; Weight 50.35 kg; Height 5 ft. 5 rr5 in. (165.10 cm); Pain 0/10; 21:00 BP 116 / 95; Pulse 80; Resp 17; Pulse Ox 99% ; rr5 22:00 BP 124 / 89; Pulse 76; Resp 17; Pulse Ox 100% ; rr5 23:00 BP 115 / 69; Pulse 70; Resp 15; Pulse Ox 99% ; rr5 05/31 00:00 BP 126 / 80; Pulse 70; Resp 19; Pulse Ox 98% ; rr5 05/30 19:20 Body Mass Index 18.47 (50.35 kg, 165.10 cm) rr5 ED Course: 05/30 19:20 Patient arrived in ED. bp1 19:20 Ayaan Moreno, ANKUSH is Primary Nurse. rr5 19:26 Triage completed. rr5 19:29 Sonny Jackson MD is Attending Physician. mh7 19:32 Arm band placed on right wrist. rr5 19:33 Patient has correct armband on for positive identification. Bed in low position. Call rr5 light in reach. Side rails up X2. environmental monitoring technician on. Pulse ox on. NIBP on. 19:33 Maintain EMS IV. Dressing intact. Good blood return noted. Site clean \T\ dry. Gauge \T\ rr 5 site: g18 LEFT ac. 20:48 CT Head Brain wo Cont In Process Unspecified. EDMS 20:52 CT Abd/Pelvis - IV Contrast Only In Process Unspecified. EDMS 21:27 Chest Single View XRAY In Process Unspecified. EDMS 23:33 Gonzalez Nieto MD is Referral Physician. 7 05/31 00:00 No provider procedures requiring assistance completed. IV discontinued, intact, rr5 bleeding controlled, No redness/swelling at site. Pressure dressing applied. Administered Medications: 05/30 20:25 Drug: Pepcid (famotidine) 20 mg Route: IVP; Site: left antecubital; rr5 21:20 Follow up: Response: No adverse reaction rr5 20:28 Drug: Zofran (Ondansetron) 4 mg Route: IVP; Site: left antecubital; rr5 21:25 Follow up: Response: No adverse reaction rr5 20:29 Drug: NS 0.9% 1000 ml Route: IV; Rate: 1000 ml; Site: left antecubital; rr5 21:30 Follow up: Response: No adverse reaction; IV Status: Completed infusion; IV Intake: rr5 1000ml 20:35 Drug: morphine 2 mg {Note: rass 0.} Route: IVP; Site: left antecubital; rr5 21:35 Follow up: Response: No adverse reaction; Pain is decreased; RASS: Alert and Calm (0) rr5 21:05 Drug: Potassium Effervescent Tablet 50 mEq Route: PO; rr5 22:00 Follow up: Response: No adverse reaction rr5 21:06 Drug: Potassium Chloride 20 mEq Route: IV; Rate: calculated rate; Site: right hand; rr5 23:00 Follow up: Response: No adverse reaction; IV Status: Completed infusion; IV Intake: rr5 100ml 23:58 Drug: Cipro (ciprofloxacin) 500 mg Route: PO; rr5 05/31 00:10 Follow up: Response: No adverse reaction rr5 Intake: 05/30 21:30 IV: 1000ml; Total: 1000ml. rr5 23:00 IV: 100ml; Total: 1100ml. rr5 Outcome: 23:34 Discharge ordered by . [facility] 05/31 00:10 Discharged to home ambulatory. rr5 Condition: stable Discharge instructions given to patient, Instructed on discharge instructions, follow up and referral plans. medication usage, Demonstrated understanding of instructions, follow-up care, medications, Prescriptions given X 4. 00:11 Patient left the ED. rr5 Signatures: Dispatcher [employer] EDMS Ayaan Moreno RN RN rr5 Valentina Flores Maurice, MD MD 7 Corrections: (The following items were deleted from the chart) 05/30 19:33 19:33 Fall Risk Fall in past 12 months (25 points). IV access (20 points). Total Carrasquillo rr5 Fall Scale indicates Low Risk Score (25-44 pts). rr5
[2021-05-30] MEDS ORDERED: CIPROFLOXACIN HCL 500 MG TAB ONE (23:47)
[2021-05-31 00:21] VITALS: BP 131/90; TEMP 98; O2SAT 98
--- NOTE | 2021-06-01 16:10 | EKG ---
Test Date: 2021-05-30 Test Time: 20:20:23 Ad Compositor: MEASUREMENT RESULTS: Intervals: Rate: 81 AR: 134 QRSD: 72 QT: 426 QTc: 494 [place]: P: 60 AR: 134 QRS: 62 T: 52 INTERPRETIVE STATEMENTS: Normal sinus rhythm Prolonged QT Abnormal ECG Compared to ECG 01/09/2021 23:03:14 No significant changes Electronically Signed On 06-01-21 16:04:42 CDT by Adán Cleary
== END 2021-05-31 00:11 | disposition home or self-care (01) ==
LOC: ER 19:10
DX: E87.6 Hypokalemia (principal); N39.0 Urinary tract infection, site not specified; R10.10 Upper abdominal pain, unspecified; R11.2 Nausea with vomiting, unspecified; G40.909 Epilepsy, unspecified, not intractable, without status epilepticus; F17.210 Nicotine dependence, cigarettes, uncomplicated
CPT/HCPCS: 36415; 70450; 71045; 74177; 80048; 80076; 80307; 81003; 81015; 83690; 84484; 84703; 85025; 85610; 85730; 93005; 96361; 96365; 96366; 96375; 99284; J2270; J2405; J3480; J7030; J7050; Q9967

== ENCOUNTER 2022-01-02 17:21 | Emergency (ER) | payer SELFPAY ==
--- OUTSIDE RECORDS SUMMARY | 2022-01-02 17:26 | XMS REPORT | Continuity of Care Document ---
:1985 Author Organization [facility] t Address [address] [place] [address] Dr. Ruthefrord [address] [place] [id number] Care Team Providers Name Role Phone Erin Bearden Attending Clinician Doctor Unassigned, Name Attending Clinician Unavailable Salomón BERGER Attending Clinician Nenita BERGER S Attending Clinician SALOMÓN Attending Clinician Unavailable Payers Payer Name Policy Type Policy Number Effective Date Expiration Date S ource Problems Condition Condition Condition Status Onset Resolution Last Treating Co mments Source Name Details Category Date Date Treatment Clinician Date No known No known Disease Unive rs active active ity of problems problems [facility] Allergies, Adverse Reactions, Alerts Allergy Allergy Status Severity Reaction(s) Onset Inactive Treating Comm ents Source Name Type Date Date Clinician NO KNOWN Drug Active Univers ALLERGIE Class ity of S [facility] Social History Social Habit Start Date Stop Date Quantity Comments Source Sex Assigned At Uni versity [facility] Exposure to SARS-CoV-2 Not sure Un [facility]ity [facility] [place] (event) [facility] Smoking Status Start Date Stop Date Source Unknown if ever smoked Universit y [facility] Medications Ordered Filled Start Stop Current Ordering Indication Dosage Frequency Signature Comments Components Source Medication Medication Date Date Medication? Clinician (SIG) Name Name traMADoL 2020- No 50mg 50 mg, Univer s (ULTRAM) 12-25-04 Oral, ONCE ity of tablet 50 01:30: 00:31 NOW, 1 [place] mg 00 :00 dose, [facility] Medical 12/24/20 at Branch 1930, Routine traMADoL 2020- No 50mg 50 mg, Univer s (ULTRAM) 12-25- Oral, ONCE ity of tablet 50 01:30: 00:31 NOW, 1 [place] mg 00 :00 dose, Wed Medical 12/24/20 at Branch 1930, Routine traMADoL 50 Yes [id number] 50mg Take 1 Univ ers mg tablet 2-03 tablet by ity o f 00:00: mouth [place] 00 every 6 Medical (six) Branch hours as needed for Pain (scale 7-10). Indication s: acute pain dicyclomine Yes [id number] 10mg Take 1 Univers 10 mg 2-03 capsule by ity of capsule 00:00: mouth 4 [place] 00 (four) Medical times [place] daily. traMADoL 50 Yes [id number] 50mg Take 1 Univ ers mg tablet 2-03 tablet by ity o f 00:00: mouth [place] 00 every 6 Medical (six) Branch hours as needed for Pain (scale 7-10). Indication s: acute pain dicyclomine Yes [id number] 10mg Take 1 Univers 10 mg 2-03 capsule by ity of capsule 00:00: mouth 4 [place] 00 (four) Medical times [place] daily. KCL 20 2019-11 Yes 40meq 40 mEq, Univers mEq/15 mL 12-28 Oral, ity of solution 40 15:00: DAILY, [place] mEq 00 First dose Medical on Tue [place] 10/27/20 at 0900, Until Discontinu ed, SARAN potassium 2019-11 2020- No 10meq 10 mEq, IV Univers chloride in 12-28 Piggyback, i ty of water 10 02:00: 03:54 Q1H, 2 [place] mEq/100 mL 00 :00 doses, Medical RTU 10 mEq First dose [facility] on 10/26/20 at 2000, Last dose on 10/26/20 at 2100, 100 mL iohexol 2019-11 2020- No 120mL 120 mL, Unive rs (OMNIPAQUE 12-28 Intravenou it y of 350 01:00: 00:48 s, ONCE, 1 [place] BULK-100 00 :00 dose, [facility] Medica l mL) 10/26/20 at [place] injection 1900, 120 mL Routine morpHINE 2019-11- No 4mg 4 mg, Slow Un lcaudia injection 4 12-28 IV Push, ity of mg 00:45: 00:00 ONCE, 1 [place] 00 :00 dose, [facility] 10/26/20 at Branch 1845, STAT ondansetron 2019-11 2020- No 4mg 4 mg, Slow Univers (ZOFRAN 12-28 IV Push, ity of (PF)) 00:45: 23:59 ONCE, 1 [place] injection 4 00 :00 dose, [facility] Med ical mg 10/26/20 at Branch 1845, SARAN traMADoL 2019- Yes 4647 50mg Take 1 Univers (ULTRAM) 50 2-06 tablet by ity of mg tablet 00:00: mouth [place] 00 every 6 Medical (six) Branch hours as needed for Pain (scale 7-10). Indication s: acute pain ondansetron 2019-11 Yes [id number] 4mg Take 1 Univers (ZOFRAN) 4 2-06 tablet by ity of mg tablet 00:00: mouth [place] 00 every 8 Medical (eight) Branch hours as needed for Nausea and Vomiting (N/V). traMADoL 2019-11 Yes [id number] 50mg Take 1 Univers (ULTRAM) 50 2-06 tablet by ity of mg tablet 00:00: mouth [place] 00 every 6 Medical (six) Branch hours as needed for Pain (scale 7-10). Indication s: acute pain ondansetron 2019-11 Yes [id number] 4mg Take 1 Univers (ZOFRAN) 4 2-06 tablet by ity of mg tablet 00:00: mouth [place] 00 every 8 Medical (eight) Branch hours as needed for Nausea and Vomiting (N/V). traMADoL 2019- Yes [id number] 50mg Take 1 Univers (ULTRAM) 50 2-06 tablet by ity of mg tablet 00:00: mouth [place] 00 every 6 Medical (six) Branch hours as needed for Pain (scale 7-10). Indication s: acute pain ondansetron 2019- Yes [id number] 4mg Take 1 Univers (ZOFRAN) 4 2-06 tablet by ity of mg tablet 00:00: mouth [place] 00 every 8 Medical (eight) Branch hours as needed for Nausea and Vomiting (N/V). traMADoL 2019- Yes [id number] 50mg Take 1 Univers (ULTRAM) 50 2-06 tablet by ity of mg tablet 00:00: mouth [place] 00 every 6 Medical (six) Branch hours as needed for Pain (scale 7-10). Indication s: acute pain ondansetron 2019-11 Yes [id number] 4mg Take 1 Univers (ZOFRAN) 4 2-06 tablet by ity of mg tablet 00:00: mouth 00 every 8 Medical (eight) Branch hours as needed for Nausea and Vomiting (N/V). Vital Signs Vital Name Observation Time Observation Value Comments Source Heart rate 2020-12-25 00:35:00 88 /min Universi ty [facility] Body temperature 2020-12-24 22:47:00 37.39 [facility] Respiratory rate 2020-12-24 22:47:00 16 /min [facility] Body height 2020-12-24 22:47:00 165.1 cm Universi ty [facility] Body weight 2020-12-24 22:47:00 53.978 kg Universi [facility] BMI 2020-12-24 22:47:00 19.80 kg/m2 Universi ty [facility] Oxygen saturation in 2020-12-24 22:47:00 99 /min University of Arterial blood by [facility] Pulse oximetry Branch Systolic blood 2020-12-24 22:47:00 105 mm[Hg] Univer sity of [facility] Diastolic blood 2020-12-24 22:47:00 89 mm[Hg] Unive [facility] Heart rate 2020-12-25 00:35:00 88 /min Universi [facility] Body temperature 2020-12-24 22:47:00 37.39 [facility] Respiratory rate 2020-12-24 22:47:00 16 /min [facility] Body height 2020-12-24 22:47:00 165.1 cm Universi [facility] Body weight 2020-12-24 22:47:00 53.978 kg Universi [facility] BMI 2020-12-24 22:47:00 19.80 kg/m2 Universi ty [facility] Oxygen saturation in 2020-12-24 22:47:00 99 /min University of Arterial blood by [facility] Pulse oximetry Branch Systolic blood 2020-12-24 22:47:00 105 mm[Hg] Univer sity of pressure [facility] Diastolic blood 2020-12-24 22:47:00 89 mm[Hg] Unive rsity of pressure [facility] Systolic blood 2020-10-27 05:21:00 120 mm[Hg] Univer sity of pressure [facility] Diastolic blood 2020-10-27 05:21:00 83 mm[Hg] [facility] Heart rate 2020-10-27 05:21:00 78 /min [facility] Respiratory rate 2020-10-27 05:21:00 18 /min [facility] Oxygen saturation in 2020-10-27 05:21:00 100 /min [facility] Arterial blood by [facility] Pulse oximetry [place] Body temperature 2020-10-26 23:04:00 37.22 [facility] Body weight 2020-10-26 23:04:00 54.432 kg [facility] Procedures Procedure Date / Time Performing Clinician Source Performed CONSENT/REFUSAL FOR 2020-12-24 22:37:54 Doctor Unassigned, No Un [facility] DIAGNOSIS AND TREATMENT Name Medical Branch US GALL BLADDER 2020-10-27 04:32:33 Dylan Gutierres [facility] ABORH CONFIRMATION 2020-10-27 03:17:00 Sim Lorenzana [facility] HB ABO GROUPING 2020-10-27 02:55:00 Sim Lorenzana [facility] COVID-19 (ID NOW RAPID 2020-10-27 02:15:00 Dylan Gutierres [facility] TESTING) Medical Branch ACETAMINOPHEN 2020-10-27 01:40:00 Sim [facility] ABDOMEN PELVIS W 2020-10-27 00:53:15 Sim Lorenzana [facility] CONTRAST [facility] POCT TEST 2020-10-27 00:04:00 Sim Lorenzana [facility] URINALYSIS 2020-10-27 00:02:00 Sim Lorenzana [facility] CBC WITH DIFF 2020-10-26 23:52:00 Sim Lorenzana [facility] LIPASE 2020-10-26 23:51:00 Sim Lorenzana o [facility] HEPATIC FUNCTION PANEL 2020-10-26 23:51:00 Sim Lorenzana [facility] ([id number]) (ALB,T.PRO,BILI Medical Branch T,BU/BC,ALT,AST,ALK PHOS) BASIC METABOLIC PANEL 2020-10-26 23:51:00 Sim Lorenzana [facility] (NA, K, CL, CO2, Medical Branch GLUCOSE, BUN, CREATININE, CA) ETHANOL 2020-10-26 23:51:00 Sim Lorenzana o f [facility] PROTHROMBIN TIME / INR 2020-10-26 23:51:00 Sim Lorenzana [facility] ACTIVATED PARTIAL 2020-10-26 23:51:00 Sim Lorenzana [facility] THRMPLAS RUBÉN [facility] EBV-MONONUCLEOSIS SCREEN 2020-10-26 23:51:00 Sim Lorenzana [facility] N-TERMINAL PRO-BNP 2020-10-26 23:51:00 Sim Lorenzana [facility] NOTICE OF PRIVACY 2020-10-26 22:50:27 Doctor Unassigned, No Univ [facility] PRACTICES Name [facility] Branch CONSENT/REFUSAL FOR 2020-10-26 22:49:26 Doctor Unassigned, No [facility] DIAGNOSIS AND TREATMENT Name [facility] Encounters Start End Encounter Admission Attending Care Care Encounter Source Date/Time Date/Time Type Type Clinicians Facility Department ID 2020-12-24 2020-12-24 Emergency [facility] [id number] 16:49:00 18:54:00 Ruthann Saenz [id number] [place] [id number] [place] [id number] [facility] 2020-12-24 2020-12-24 Emergency [facility] [id number] Univers 16:49:00 18:54:00 Ruthann Saenz [id number] i ty of [place] [id number] [facility] [id number] [place] [address] Branch 2020-12-24 2020-12-24 Emergency X [facility] ERT [id number] Univers 16:39:00 16:39:00 ity of [facility] 2020-12-24 2020-12-24 Orders Doctor ALEX [id number] Univers 00:00:00 00:00:00 Only Unassigned, CHRISTA [id number] ity of [place] [facility] [id number] [place] [id number] [facility] 009 Branch 2020-10-26 2020-10-27 Emergency Sim Lorenzana [facility] [id number] Univers 17:23:00 00:07:00 Dylan Gutierres [id number] ity of [place] [id number] [facility] [id number] [facility] 084 Branch 2020-10-26 2020-10-26 Emergency X SALOMÓN [facility] ERT [id number] Univers 16:48:00 16:48:00 [facility] Results Test Test Test Results Result Source Description Time Comments Comments GALL BLADDER sonographic evidence [place] [address] of cholelithiasis, [facility] 05:40:24 cholecystitis, or Branch biliary ductaldilatation. Hepatic steatosis. Preliminary Report Dictated by Resident: Remberto Barton MD., have reviewed this study and agree with the abovereport.Exam: US GALLBLADDER HISTORY: RUQ Abdominal Pain, Elevated LFTS, Elevated T-Bili R/o AcuteCholecystitis COMPARISON: CT abdomen and pelvis, 10/26/2020. TECHNIQUE: Grayscale and color Doppler evaluation of the gallbladder wasperformed. FINDINGS: LIVER: There is diffuse hyperechogenicity of the hepatic parenchyma and thevisualized portions of the liver with poor visualization of the deeperportal triads. The main portal vein is nondilated measuring 0.8 cm indiameter. GALLBLADDER: No cholelithiasis, pericholecystic fluid, or gallbladder wallthickening. Negative sonographic Francis's sign however limited utility aspatient is premedicated. The common bile duct measures a normal 0.4 cm. RIGHT KIDNEY: The visualized portion of the right kidney is unremarkable. PANCREAS: The visualized portions of the pancreas are unremarkable, howeverlimited visualization secondary to overlying bowel gas. [facility], Radiant Results Inft User - 10/26/2020 11:41 PM CSTExam: US GALLBLADDER HISTORY: RUQ Abdominal Pain, Elevated LFTS, Elevated T-Bili R/o AcuteCholecystitis COMPARISON: CT abdomen and pelvis, 10/26/2020.TECHNIQUE: Grayscale and color Doppler evaluation of the gallbladder wasperformed.FINDINGS: LIVER: There is diffuse hyperechogenicity of the hepatic parenchyma and thevisualized portions of the liver with poor visualization of the deeperportal triads. The main portal vein is nondilated measuring 0.8 cm indiameter.GALLBLADDER: No cholelithiasis, pericholecystic fluid, or gallbladder wallthickening. Negative sonographic Francis's sign however limited utility aspatient is premedicated. The common bile duct measures a normal 0.4 cm.RIGHT KIDNEY: The visualized portion of the right kidney is unremarkable. PANCREAS: The visualized portions of the pancreas are unremarkable, howeverlimited visualization secondary to overlying bowel gas. IMPRESSIONNo sonographic evidence of cholelithiasis, cholecystitis, or biliary ductaldilatation. Hepatic steatosis.Preliminary Report Dictated by Resident: Remberto Portillo MD., have reviewed this study and agree with the abovereport. CT ABDOMEN 2020-10- No acute abdominopelvic University of PELVIS W 07 process. Preliminary [place] [facility] CONTRAST 05:13:48 Report Dictated by Branch Resident: Remberto Freitas MD., have reviewed this study and agree with the abovereport.EXAM: CT ABDOMEN AND PELVIS WITH CONTRAST HISTORY: Intermittent abdominal pain COMPARISON: None. TECHNIQUE AND FINDINGS: Contiguous axial imaging from the level of the lungbases through the proximal thighs was performed after the administration ofintravenous Omnipaque contrast. Coronal and sagittal reconstructions wereobtained. ?Auto mA and/or iterative reconstruction were used to reduceradiation dose. FINDINGS: LOWER THORAX: The lungs bases are clear. No cardiomegaly. PE? LIVER: Diffuse geographic hypoattenuation of the hepatic parenchymasuggestive of hepatic steatosis. No focal hepatic lesion. Normal contour. GALLBLADDER AND BILIARY TREE: ?No biliary ductal dilation. ?No gallbladderwall thickening. SPLEEN: No splenomegaly. PANCREAS: No ductal dilation or masses. ADRENAL GLANDS: No adrenal nodules. KIDNEYS: No hydronephrosis, stones, or masses. PERITONEUM AND RETROPERITONEUM: No free air or fluid. LYMPH NODES: A 1.1 cm portacaval lymph node (2:41). No suspiciousadenopathy. GI TRACT: No dilation or wall thickening. The appendix is unremarkable.Hyperattenu ating contents are noted within large bowel, likely ingestedmaterial. PELVIS/BLADDER: The uterus and bilateral ovaries are unremarkable. Theurinary bladder is decompressed and appears unremarkable. VESSELS: Unremarkable. BONES AND SOFT TISSUES: No suspicious lytic or sclerotic bony lesions. [facility], Radiant Results Inft User - 10/26/2020 11:14 PM CSTEXAM: CT ABDOMEN AND PELVIS WITH CONTRASTHISTORY: Intermittent abdominal painCOMPARISON: None.TECHNIQUE AND FINDINGS: Contiguous axial imaging from the level of the lungbases through the proximal thighs was performed after the administration ofintravenous Omnipaque contrast. Coronal and sagittal reconstructions wereobtained. Auto mA and/or iterative reconstruction were used to reduceradiation dose.FINDINGS:LOWER THORAX: The lungs bases are clear. No cardiomegaly. PE?LIVER: Diffuse geographic hypoattenuation of the hepatic parenchymasuggestive of hepatic steatosis. No focal hepatic lesion. Normal contour.GALLBLADDER AND BILIARY TREE: No biliary ductal dilation. No gallbladderwall thickening.SPLEEN: No splenomegaly.PANCREAS: No ductal dilation or masses.ADRENAL GLANDS: No adrenal nodules.KIDNEYS: No hydronephrosis, stones, or masses.PERITONEUM AND RETROPERITONEUM: No free air or fluid.LYMPH NODES: A 1.1 cm portacaval lymph node (2:41). No suspiciousadenopathy.GI TRACT: No dilation or wall thickening. The appendix is unremarkable.Hyperattenu ating contents are noted within large bowel, likely ingestedmaterial. PELVIS/BLADDER: The uterus and bilateral ovaries are unremarkable. Theurinary bladder is decompressed and appears unremarkable.VESSELS: Unremarkable.BONES AND SOFT TISSUES: No suspicious lytic or sclerotic bony lesions.IMPRESSIONNo acute abdominopelvic process.Preliminary Report Dictated by Resident: Remberto Cobian MD., have reviewed this study and agree with the abovereport. Type and Screen - ONCE STAT 2020-10-27 03:34:48 Test Item Value Reference Range Interpretation Comme nts ABO & RH (test code = 20) O Positive Pe rformed at [facility] Laboratory Services [facility] Blood [address]Toll Free: [phone] A No. [id number] IAT (test code = 1185) Negative Perfo rmed at [facility] Blood [address] [place] [id number] Free: [phone] A No. [id number] [facility] [id number] 03:33:09 Test Item Value Reference Range Interpretation Comments ABO & RH (test code O Positive Performe d at [facility] = 20) Laboratory Serv [facility] Blood Bank1 [address]Toll Free: [phone] A No. [id number] [facility] (ID NOW RAPID TESTING)2020-10-27 02:41:00 Test Item Value Reference Range Interpretation Comments SARS-CoV-2 Rapid ID NOW Not Detected Not Detected (test code = 77428-7) YURIDIA (test code = YURIDIA) ID NOW COVID-19 Assay is an isothermal nucleic acid amplification test intended for the qualitative detection of nucleic acid from SARS-CoV-2 viral RNA in nasopharyngeal (WOOD MACHINIST) specimens. It is used under Emergency Use Authorization (EUA) by FDA. The limit of detection (LOD) of the assay is 125 Genome Equivalents/mL. A positive result is indicative of the presence of SARS-CoV-2 RNA. ?Clinical correlation with patient history and other diagnostic information is necessary to determine patient infection status. A negative (Not Detected) result does not preclude SARS-CoV-2 infection. In patients with clinical symptoms and other tests that are consistent with SARS-CoV-2 infection, negative results should be treated as presumptive negative and a new specimen should be tested with alternative PCR molecular test. Invalid: Please collect a new specimen for repeat patient testing if clinically indicated. Lab Interpretation Normal (test code = 03603-4) [facility]ET[facility]INOPHEN2020-12-07 02:19:00 Test Item Value Reference Range Interpretation Comments ACETAMINOP (test code = <10.0 10-30 L 0410843433) YURIDIA (test code = YURIDIA) Toxic: Greater than 200 ug/mL @ 4 hour post ingestion or greater than 50 ug/mL @ 12 hour post ingestion Lab Interpretation (test Abnormal code = 17843-6) [facility]OL2020-12-07 01:34:00 Test Item Value Reference Range Interpretation Comments ALCOHOL (test code = <10 mg/dL 8302274289) YURIDIA (test code = YURIDIA) <10 Ehwaewgy10-345 Toxic>100 Depression of SHELLFISH CHECKER>400 Fatalities Reported [facility] Hospital[facility]inalysis2020-12-07 01:00:00 Test Item Value Reference Range Interpretation Comments APPEARANCE (test code = Hazy Clear A 3434260586) COLOR (test code = Katelyn Yellow A 9962048177) PH (test code = 4.8-8.0 8514160248) SP GRAVITY (test code = 1.003-1.030 H 9018201291) GLU U QUAL (test code = Normal Normal 8753153976) BLOOD (test code = Negative Negative 2093831678) KETONES (test code = 80 mg/dL Negative A 0535603701) PROTEIN (test code = 100 mg/dL Negative A 2887-8) UROBILIN (test code = 4.0 mg/dL Normal A 4311040803) BILIRUBIN (test code = 2 mg/dL Negative A 1751812708) NITRITE (test code = Negative Negative 8162615064) LEUK LUIS (test code = Negative Negative 8028729178) RBC/HPF (test code = See_Comment [Autom ated message] 2195576614) The system [employer] generated this result transmit enid reference range : 0 - 3 HPF. The refe rence range was not u sed to interpret th is result as normal/abnormal . WBC/HPF (test code = See_Comment [Autom ated message] 6813783817) The system [employer] generated this result transmit enid reference range : 0 - 5 HPF. The refe rence range was not u sed to interpret th is result as normal/abnormal . BACTERIA (test code = Few Negative A 3162313346) MUCOUS (test code = Marked Negative LPF A 0061357340) SQ EPITH (test code = HPF 6936409971) Lab Interpretation (test Abnormal code = 05373-1) [facility] Hospital[facility]BV-MONONUCLEOSIS [id number] 00:48:00 Test Item Value Reference Range Interpretation Comments EBV Mononucleosis Screen (test code Negative Negative = 5515464118) Lab Interpretation (test code = Normal 07469-2) [facility] HospitalN-TERMINAL [id number] 00:27:00 Test Item Value Reference Range Interpretation Comments NT-proBNP (test code 101 pg/mL See_Comment [Autom ated = 5715733345) message] The system which generated this result transmitted reference range : <=125. The reference range was not used to interpret this result as normal/abnormal . YURIDIA (test code = YURIDIA) Biotin has been reported to cause a negative bias, interpret results relative to patient's use of biotin. Lab Interpretation Normal (test code = 15042-1) [facility] Hospital[facility] Metabolic Panel (NA, K, CL, CO2, GLUCOSE, BUN, CREATININE, CA)2020-10-27 00:20:00 Test Item Value Reference Range Interpretation Comments NA (test code = 128 mmol/L 135-145 L 2086551474) K (test code = 2.8 mmol/L 3.5-5 LL 4558008671) CL (test code = 84 mmol/L 98-108 L 7484691741) CO2 TOTAL (test code = 33 mmol/L 23-31 H 4629107118) AGAP (test code = 2-16 8297632462) BUN (test code = 16 mg/dL 7-23 9370689824) GLUCOSE (test code = 112 mg/dL 70-110 H 6122980478) CREATININE (test code = 0.72 mg/dL 0.5-1.04 7896334664) CALCIUM (test code = 9.7 mg/dL 8.6-10.6 5179812760) eGFR Calculation mL/min/1.73m2 (Non-) (test code = 6014369404) eGFR Calculation mL/min/1.73m2 () (test code = 2889637763) YURIDIA (test code = YURIDIA) Association of Glomerular Filtration Rate (GFR) and Staging of Kidney Disease* + --+ --+ ------+| GFR (mL/min/1.73 m2) ?| With Kidney Damage ?| ?Without Kidney Damage+ --------+ --------+ +| ?>90 ?| ?Stage one ?| ? Normal ?+ ---+ ---+ -------+| ?60-89 ?| ?Stage two ?| ? Decreased GFR ? + --+ --+ ------+| ?30-59 ?| ?Stage three ?| ? Stage three ? + --+ --+ ------+| ?15-29 ?| ?Stage four ? | ? Stage four ?+ ---+ ---+ -------+| ?<15 (or dialysis) ? ?| ?Stage five ? | ? Stage five ?+ ---+ ---+ -------+ *Each stage assumes the associated GFR level has been in effect for at least three months. ?Stages 1 to 5, with or without kidney disease, indicate chronic kidney disease. Notes: Determination of stages one and two (with eGFR >59mL/min/1.73 m2) requires estimation of kidney damage for at least three months as defined by structural or functional abnormalities of the kidney, manifested by either:Pathological abnormalities or Markers of kidney damage (including abnormalities in the composition of the blood or urine or abnormalities in imaging tests). Lab Interpretation Abnormal (test code = 97098-0) [facility] Hospital[facility] Function Panel (ALB, T.PRO, BILI T, BU/BC, ALT, AST, ALK PHOS)2020-10-27 00:18:00 Test Item Value Reference Range Interpretation Comments TOTAL BILI (test code = 9029202689) 1.8 mg/dL 0.1-1.1 H BILI UNCON (test code = 7526820120) 1.1 mg/dL 0.1-1.1 BILI CONJ (test code = 5727862510) 0.0 mg/dL 0-0.3 T PROTEIN (test code = 8702679847) 8.0 g/dL 6.3-8.2 ALBUMIN (test code = 3741146691) 4.5 g/dL 3.5-5 ALK PHOS (test code = 7984933776) 151 U/L 34-122 H ALTv (test code = 1742-6) 113 U/L 5-35 H AST(SGOT) (test code = 9109247220) 290 U/L 13-40 H Lab Interpretation (test code = Abnormal 77424-3) [id number] [facility]:18:00 Test Item Value Reference Range Interpretation Comments LIPASE (test code = 0076107463) 95 U/L 0-220 Lab Interpretation (test code = Normal 30271-3) [facility] 00:14[facility]00 Test Item Value Reference Range Interpretation Comments APTT Patient (test See_Comment [Automat ed code = 3173-2) message] The system which generated this result transmitted reference range : 23 - 38 Seconds . The reference range was not used to interpr et this result as normal/abnormal . YURIDIA (test code = YURIDIA) The [facility] patient population mean normal value for aPTT is 30 seconds. Lab Interpretation Normal (test code = 67306-1) [facility] / [id number] 00:12:00 Test Item Value Reference Range Interpretation Comments PROTIME PATIENT (test See_Comment [Auto mated message] code = 5964-2) The system wh ich generated this result transmitted ref erence range: 12.0 - 1 4.7 Seconds. The re ference range was not u sed to interpret this result as normal/abnor mal. INR (test code = 6301-6) Nor mal INR <1.1; Warfarin Therap eutic range 2.0 to 3. 0 or 2.5 to 3.5, dep ending upon the indica tions. Lab Interpretation (test Normal code = 42321-5) [facility] with [id number] 00:05:00 Test Item Value Reference Range Interpretation Comments WBC (test code = See_Comment [Automated 5490-2) message] The sy stem which generated this result transmitted reference range : 4.30 - 11.10 10*3/?L. The reference range was not used to interpret this result as normal/abnormal . RBC (test code = See_Comment [Automated 520-8) message] The sy stem which generated this result transmitted reference range : 3.93 - 5.25 10*6/?L. The reference range was not used to interpret this result as normal/abnormal . HGB (test code = 14.5 g/dL 11.6-15 718-7) HCT (test code = 38.8 % 35.7-45.2 4544-3) MCV (test code = 94.2 fL 80.6-95.5 787-2) MCH (test code = 35.2 pg 25.9-32.8 H 785-6) MCHC (test code = 37.4 g/dL 31.6-35.1 H 786-4) RDW-SD (test code = 35.8 fL 39-49.9 L 81224-1) RDW-CV (test code = 10.5 % 12-15.5 L 788-0) PLT (test code = See_Comment [Automated 777-3) message] The sy stem which generated this result transmitted reference range : 166 - 358 10*3/ ?L. The reference r sixto was not used to interpret this result as normal/abnormal . MPV (test code = 9.7 fL 9.5-12.9 79344-7) NRBC/100 WBC (test See_Comment [Automat ed code = 8038766011) message] The system which generated this result transmitted reference range : 0.0 - 10.0 /100 WBCs. The refer ence range was not u sed to interpret th is result as normal/abnormal . NRBC x10^3 (test code <0.01 See_Comment [Auto mated = 8811340419) message] The s ystem which generated this result transmitted reference range : 10*3/?L. The reference range was not used to interpret this result as normal/abnormal . GRAN MAT (NEUT) % 78.9 % (test code = 770-8) IMM GRAN % (test code 0.30 % = 0994682415) LYMPH % (test code = 10.5 % 736-9) MONO % (test code = 9.8 % 5905-5) EOS % (test code = 0.2 % 713-8) BASO % (test code = 0.3 % 706-2) GRAN MAT x10^3(ANC) 4.74 10*3/uL 1.88-7.09 (test code = 3115537672) IMM GRAN x10^3 (test <0.03 0-0.06 code = 0179397892) LYMPH x10^3 (test code 0.63 10*3/uL 1.32-3.29 L = 731-0) MONO x10^3 (test code 0.59 10*3/uL 0.33-0.92 = 742-7) EOS x10^3 (test code = <0.03 0.03-0.39 L 711-2) BASO x10^3 (test code <0.03 0.01-0.07 = 704-7) Lab Interpretation Abnormal (test code = 56609-8) [facility] [id number] 00:04:00 Test Item Value Reference Range Interpretation Comments POCT PREG (test code = 1605) Negative On board controls acceptable with Present C Line (test code = 3574) POCT PREG LOT # (test code = 3575) [id number] POCT PREG TEST DATE (test 02/18/2022 code = 3576) Lab Interpretation (test code = Normal 46577-8) [facility]"
[2022-01-02] MEDS ORDERED: NA CHLORIDE 0.9% 1,000 ML ONE (17:49)
[2022-01-02] MEDS ORDERED: ONDANSETRON 4 MG/2 ML VIAL ONE (17:49)
[2022-01-02 18:01] LABS: Absolute Lymphocytes (CBC) 0.7 K/uL (0.7-4.9); Hematocrit 44.6 % (36.0-45.0); Lymphocytes % 13.4 % (15.3-44.8); MPV 7.7 fL (7.6-11.3); RBC Red Blood Cell Count 4.44 M/uL (3.86-4.86)
[2022-01-02 18:31] LABS: Albumin 4.3 g/dL (3.4-5.0); Bilirubin Direct 0.5 mg/dL (0-0.2); Bilirubin Total 1.2 mg/dL (0.2-1.0); Protein, Total 8.5 g/dL (6.4-8.2)
[2022-01-02 18:34] LABS: Potassium 2.7 mmol/L (3.5-5.1)
[2022-01-02] MEDS ORDERED: KCL 20 MEQ/100 mL IVPB 100 ML IV ONE (18:38)
[2022-01-02] MEDS ORDERED: MORPHINE 4 MG/ML SYR ONE (18:38)
[2022-01-02] MEDS ORDERED: POTASSIUM CL SA 10 MEQ TAB PO ONE (18:38)
[2022-01-02] MEDS ORDERED: FAMOTIDINE 20 MG/2 ML VIAL IV ONE (18:38)
[2022-01-02] MEDS ORDERED: NA CHLORIDE 0.9% 250 ML ONE (18:38)
--- NOTE | 2022-01-02 21:10 | ER ---
Nurse's Notes [facility] Name: Krysta Barrera Age: 36 yrs Sex: Female : 1985 Arrival Date: 01/02/2022 Time: 17:23 Bed 14 Private MD: Diagnosis: Alcoholic cirrhosis of liver without ascites;Unspecified jaundice;Alcohol abuse;Hypokalemia Presentation: 01/02 17:32 Chief complaint: Patient states: Upper abdominal pain, N/V that started today. States, ph " After I threw up it was like my hands cramped up and I started feeling like my heart was racing and fell to my knees.". Coronavirus screen: Vaccine status: Patient reports receiving the 2nd dose of the covid vaccine. Ebola Screen: No symptoms or risks identified at this time. Initial Sepsis Screen: Does the patient meet any 2 criteria? No. Patient's initial sepsis screen is negative. Does the patient have a suspected source of infection? No. Patient's initial sepsis screen is negative. Risk Assessment: Do you want to hurt yourself or someone else? Patient reports no desire to harm self or others. Onset of symptoms was January 02, 2022. 17:32 Method Of Arrival: Ambulatory ph 17:32 Acuity: DENILSON 3 ph Historical: - Allergies: 17:34 No Known Allergies; ph - Home Meds: 17:34 Clarithromycin Oral [Active]; Omeprazole Oral [Active]; esomeprazole [Active]; Zofran ph Oral [Active]; Dicyclomine Oral [Active]; - PMHx: 17:34 Anemia; gastric ulcer; Seizures; ph - Immunization history:: Client reports receiving the 2nd dose of the Covid vaccine. - Social history:: Smoking status: Patient reports the use of cigarette tobacco products, smokes one-half pack cigarettes per day. Screenin:55 Abuse screen: Denies threats or abuse. Denies injuries from another. Nutritional ic1 screening: No deficits noted. Tuberculosis screening: No symptoms or risk factors identified. Fall Risk None identified. Assessment: 17:53 General: Appears in no apparent distress. Behavior is calm, cooperative. Pain: ic1 Complains of pain in abdomen. Neuro: Level of Consciousness is awake, alert, obeys commands, Oriented to person, place, time, situation. Cardiovascular: Reports palpitations, since today while at work after exp n/v. Denies chest pain. Respiratory: No deficits noted. GI: Abdomen is round non-distended, Reports diarrhea, nausea, vomiting. : No deficits noted. EENT: No deficits noted. Derm: No deficits noted. Musculoskeletal: No deficits noted. 21:27 Reassessment: Patient and/or family updated on plan of care and expected duration. Pain ll3 level reassessed. Patient is alert, oriented x 3, equal unlabored respirations, skin warm/dry/pink. Vital Signs: 17:32 BP 131 / 93; Pulse 104; Resp 18; Temp 98.8(TE); Pulse Ox 100% on R/A; Weight 52.16 kg; ph Height 5 ft. 5 in. (165.10 cm); 19:00 BP 129 / 96; Pulse 98; Resp 18; Pulse Ox 100% ; ll3 20:15 BP 127 / 101; Pulse 99; Resp 20; Pulse Ox 100% on R/A; ll3 21:15 BP 132 / 100; Pulse 95; Resp 18; Pulse Ox 100% on R/A; ll3 17:32 Body Mass Index 19.14 (52.16 kg, 165.10 cm) ph ED Course: 17:23 Patient arrived in ED. mr 17:34 Triage completed. ph 17:35 Arm band placed on Patient placed in an exam room. ph 17:42 Magnus Rousseau MD is Attending Physician. kdr 17:45 Basic Metabolic Panel Sent. ic1 17:45 CBC with Diff Sent. ic1 17:45 Hepatic Function Sent. ic1 17:45 Lipase Sent. ic1 17:53 Alem Valerio, RN is Primary Nurse. ic1 17:55 Placed in gown. Bed in low position. Call light in reach. Side rails up X2. ic1 17:55 No provider procedures requiring assistance completed. Inserted saline lock: 20 gauge ic1 in left antecubital area, using aseptic technique. Blood collected. 19:37 Attending Physician role handed off by Magnus Rousseau MD miles 19:37 Dax Hickey MD is Attending Physician. miles 21:08 Easton Newell MD is Referral Physician. miles 21:31 IV discontinued, intact, bleeding controlled, No redness/swelling at site. Pressure ll3 dressing applied. Administered Medications: 17:53 Drug: NS 0.9% 1000 ml Route: IV; Rate: 1 bolus; Site: left antecubital; ic1 17:53 Drug: Zofran (Ondansetron) 4 mg Route: IVP; Site: left antecubital; ic1 18:48 Drug: morphine 4 mg Route: IVP; Site: left antecubital; ic1 18:48 Drug: Pepcid (famotidine) 20 mg Route: IVP; Site: left antecubital; ic1 18:48 Drug: Potassium Chloride 20 mEq Route: IV; Rate: calculated rate; Site: left ic1 antecubital; 21:26 Follow up: Response: No adverse reaction; IV Status: Completed infusion; IV Intake: ll3 100ml 18:48 Drug: Potassium Chloride 40 mEq Route: PO; ic1 21:26 Not Given (Patient Refused): NS 0.9% with KCl 20 mEq/L 1000 ml IV at 500 ml/hr ll3 continuous 21:27 Not Given (Patient Refused): ProTONIX (pantoprazole) 40 mg IVP once ll3 Intake: 21:26 IV: 100ml; Total: 100ml. ll3 Outcome: 21:31 AMA AMA form signed ll3 21:31 Condition: stable 21:31 Discharge instructions given to patient, family, Instructed on discharge instructions, follow up and referral plans. medication usage, Demonstrated understanding of instructions, follow-up care, medications, Prescriptions given X 4. 21:31 Patient left the ED. ll3 Signatures: Dax Hickey MD MD cha Rittger, Kevin, MD MD [facility] Karina Rayne Zaragoza RN RN ph Loubet, Lynsea, RN RN ll3 Alem Valerio RN RN ic1
--- NOTE | 2022-01-02 21:10 | EDPHYS ---
Physician Documentation [facility] Name: Krysta Barrera Age: 36 yrs Sex: Female : 1985 Arrival Date: 01/02/2022 Time: 17:23 Bed 14 Private MD: ED Physician Dax Hickey HPI: 01/02 18:31 This 36 yrs old Female presents to ER via Ambulatory with complaints of kdr Vomiting, fast heart rate. 18:31 The patient presents to the emergency department with nausea, that is mild, that is kdr moderate, vomiting, that is intermittent, abdominal pain, of the epigastric area, described as achy, burning, crampy, vague,\E\. Onset: The symptoms/episode began/occurred today. Possible causes: unknown, bad food exposure. The symptoms are aggravated by food , The symptoms are alleviated by nothing. Associated signs and symptoms: Pertinent positives: abdominal pain, nausea, vomiting. Severity of symptoms: At their worst the symptoms were moderate just prior to arrival, in the emergency department the symptoms are unchanged. The patient has experienced a previous episode, Patient was similarly ill last Tuesday as well. She was sick for approximately 2 and half days with nausea and vomiting. She then improved and was eating normally until today when she became ill again. The patient has not recently seen a physician. Patient had some antibiotics from a prior illness that she has been taking today as well. Historical: - Allergies: 17:34 No Known Allergies; ph - Home Meds: 17:34 Clarithromycin Oral [Active]; Omeprazole Oral [Active]; esomeprazole [Active]; Zofran ph Oral [Active]; Dicyclomine Oral [Active]; - PMHx: 17:34 Anemia; gastric ulcer; Seizures; ph - Immunization history:: Client reports receiving the 2nd dose of the Covid vaccine. - Social history:: Smoking status: Patient reports the use of cigarette tobacco products, smokes one-half pack cigarettes per day. ROS: 18:31 Constitutional: Negative for fever, chills, and weight loss, Eyes: Negative for injury, kdr pain, redness, and discharge, ENT: Negative for injury, pain, and discharge, Neck: Negative for injury, pain, and swelling, Cardiovascular: Negative for chest pain, palpitations, and edema, Respiratory: Negative for shortness of breath, cough, wheezing, and pleuritic chest pain, Back: Negative for injury and pain, : Negative for injury, bleeding, discharge, and swelling, MS/Extremity: Negative for injury and deformity, Skin: Negative for injury, rash, and discoloration, Neuro: Negative for headache, weakness, numbness, tingling, and seizure activity. Psych: Negative for depression, anxiety, suicide ideation, homicidal ideation, and hallucinations, Allergy/Immunology: Negative for hives, rash, and allergies, Endocrine: Negative for neck swelling, polydipsia, polyuria, polyphagia, and marked weight changes, Hematologic/Lymphatic: Negative for swollen nodes, abnormal bleeding, and unusual bruising. 18:31 Abdomen/GI: Positive for abdominal pain, nausea and vomiting, No bowel movement today, Negative for diarrhea, abdominal distension, dysphagia, hematemesis, black/tarry stool, rectal pain, rectal bleeding. Exam: 18:31 Constitutional: This is a well developed, well nourished patient who is awake, alert, kdr and in no acute distress. Head/Face: Normocephalic, atraumatic. Eyes: Pupils equal round and reactive to light, extra-ocular motions intact. Lids and lashes normal. Conjunctiva and sclera are non-icteric and not injected. Cornea within normal limits. Periorbital areas with no swelling, redness, or edema. Neck: Trachea midline, no thyromegaly or masses palpated, and no cervical lymphadenopathy. Supple, full range of motion without nuchal rigidity, or vertebral point tenderness. No Meningismus. Chest/axilla: Normal chest wall appearance and motion. Nontender with no deformity. No lesions are appreciated. Cardiovascular: Regular rate and rhythm with a normal S1 and S2. No gallops, murmurs, or rubs. Normal PMI, no JVD. No pulse deficits. Respiratory: Lungs have equal breath sounds bilaterally, clear to auscultation and percussion. No rales, rhonchi or wheezes noted. No increased work of breathing, no retractions or nasal flaring. Back: No spinal tenderness. No costovertebral tenderness. Full range of motion. Skin: Warm, dry with normal turgor. Normal color with no rashes, no lesions, and no evidence of cellulitis. MS/ Extremity: Pulses equal, no cyanosis. Neurovascular intact. Full, normal range of motion. Neuro: Awake and alert, GCS 15, oriented to person, place, time, and situation. Cranial nerves II-XII grossly intact. Motor strength 5/5 in all extremities. Sensory grossly intact. Cerebellar exam normal. Normal gait. Psych: Awake, alert, with orientation to person, place and time. Behavior, mood, and affect are within normal limits. 18:31 Abdomen/GI: Inspection: abdomen appears normal, Bowel sounds: diminished, in all quadrants, Palpation: soft, mild abdominal tenderness, in the epigastric area, mass, is not appreciated, rebound tenderness, is not appreciated. Vital Signs: 17:32 BP 131 / 93; Pulse 104; Resp 18; Temp 98.8(TE); Pulse Ox 100% on R/A; Weight 52.16 kg; ph Height 5 ft. 5 in. (165.10 cm); 19:00 BP 129 / 96; Pulse 98; Resp 18; Pulse Ox 100% ; ll3 20:15 BP 127 / 101; Pulse 99; Resp 20; Pulse Ox 100% on R/A; ll3 21:15 BP 132 / 100; Pulse 95; Resp 18; Pulse Ox 100% on R/A; ll3 17:32 Body Mass Index 19.14 (52.16 kg, 165.10 cm) ph MDM: 19:37 Patient medically screened. [facility] 21:07 Differential diagnosis: Nonspecific abd pain, gastritis, pancreatitis. Data reviewed: [facility] vital signs, nurses notes, lab test result(s). Data interpreted: playground monitor: rate is 104 beats/min, rhythm is regular, Pulse oximetry: on room air is 100 %. Test interpretation: by ED physician or midlevel provider:. Counseling: I had a detailed discussion with the patient and/or guardian regarding: the historical points, exam findings, and any diagnostic results supporting the discharge/admit diagnosis, lab results, the need for outpatient follow up, for definitive care, a family practitioner, a merchant patroller. 01/02 17:43 Order name: Basic Metabolic Panel; Complete Time: 19:39 kdr 01/02 17:43 Order name: CBC with Diff; Complete Time: 19:39 kdr 02 17:43 Order name: Hepatic Function; Complete Time: 19:39 kdr 01/02 17:43 Order name: Lipase; Complete Time: 19:39 kdr 01/02 17:43 Order name: IV Saline Lock; Complete Time: 17:45 kdr 01/02 17:43 Order name: Labs collected and sent; Complete Time: 17:45 kdr 01/02 17:43 Order name: Urine Dipstick-Ancillary (obtain specimen) kdr 01/02 17:43 Order name: Urine Test (obtain specimen) kdr Administered Medications: 17:53 Drug: NS 0.9% 1000 ml Route: IV; Rate: 1 bolus; Site: left antecubital; ic1 17:53 Drug: Zofran (Ondansetron) 4 mg Route: IVP; Site: left antecubital; ic1 18:48 Drug: morphine 4 mg Route: IVP; Site: left antecubital; ic1 18:48 Drug: Pepcid (famotidine) 20 mg Route: IVP; Site: left antecubital; ic1 18:48 Drug: Potassium Chloride 20 mEq Route: IV; Rate: calculated rate; Site: left ic1 antecubital; 21:26 Follow up: Response: No adverse reaction; IV Status: Completed infusion; IV Intake: ll3 100ml 18:48 Drug: Potassium Chloride 40 mEq Route: PO; ic1 21:26 Not Given (Patient Refused): NS 0.9% with KCl 20 mEq/L 1000 ml IV at 500 ml/hr ll3 continuous 21:27 Not Given (Patient Refused): ProTONIX (pantoprazole) 40 mg IVP once ll3 Disposition Summary: 01/02/22 21:09 Left Against Medical Advice Location: Home miles Problem: new miles Symptoms: have improved miles Condition: Fair miles Diagnosis - Alcoholic cirrhosis of liver without ascites miles - Unspecified jaundice miles - Alcohol abuse miles - Hypokalemia miles Followup: miles - With: Private Physician - When: 1 - 2 days - Reason: Recheck today's complaints, Continuance of care, Re-evaluation by your physician Followup: miles - With: Easton Newell MD - When: 2 - 3 days - Reason: Recheck today's complaints, Continuance of care, Re-evaluation by your physician Discharge Instructions: - Discharge Summary Sheet miles - Cirrhosis miles - Potassium Content of Foods miles - Jaundice, Adult miles - Alcoholic Liver Disease, Vaoy-bd-Ouny miles - Jaundice, Adult, Qsqw-nv-Ouoq miles - Hypokalemia miles - Alcoholic Liver Disease miles Prescriptions: - multivitamin with iron-mineral - take 1 tablet by ORAL route once daily; 30 tablet; Refills: 0, Product miles Selection Permitted - Protonix 40 mg Oral Tablet - take 1 tablet by ORAL route once daily; 30 tablet; Refills: 0, Product [facility] Selection Permitted - Zofran 4 mg Oral Tablet - take 1 tablet by ORAL route every 12 hours As needed; 20 tablet; Refills: 0, [facility] Product Selection Permitted Signatures: Dispatcher [employer] EDMS Dax Hickey MD MD cha Rittger, Kevin, MD MD kdr Hall, Patricia RN RN Alem Edmonds RN RN ic1 Erin Michel RN ll3 Corrections: (The following items were deleted from the chart) 19:53 18:31 Abdomen Pelvis W Con+CT.RAD.BRZ ordered. EDMN EDMS
[2022-01-02 21:40] VITALS: TEMP 98.8; O2SAT 100
[2022-01-02 21:44] VITALS: BP 132/100
== END 2022-01-02 21:31 | disposition left against medical advice (07) ==
LOC: ER 17:21
DX: K70.31 Alcoholic cirrhosis of liver with ascites (principal); E87.6 Hypokalemia; F10.10 Alcohol abuse, uncomplicated; F17.210 Nicotine dependence, cigarettes, uncomplicated
CPT/HCPCS: 36415; 80048; 80076; 83690; 85025; 96365; 96366; 96375; 99284; J2405; J3480; J7030; J7050

== ENCOUNTER 2025-02-04 12:01 | Emergency (ER) | payer OTHER, SELFPAY ==
--- OUTSIDE RECORDS SUMMARY | 2025-02-04 12:06 | XMS REPORT | Continuity of Care Document ---
Author Name Unknown Address [address] [facility] [address] [place] [address] [facility] Address [address] [facility] 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 Name Role Phone PCP, PATIENT DOES NOT HAVE A Primary Care Physic maria guadalupe Unavailable Ruthann Bearden Attending Clinician [phone] Doctor Unassigned, [place] Attending Clinician U Sim Bingham MD Attending Clinician [phone] Lisa Hernandez MD Attending Clinician [phone] LISA HERNANDEZ Attending Clinician Unavailable LISA HERNANDEZ Admitting Clinician Unavailable Payers Payer Name Policy Type Policy Number Effective Date Expirati on Date Source Problems Condition Name Condition Details Condition Category Status Onset Date Resolution Date Last Treatment Date Treating Clinician Comments Source No known active problems No known active problems Disease [facility] Allergies, Adverse Reactions, Alerts Allergy Name Allergy Type Status Severity Reaction(s) Onset Date Inactive Date Treating Clinician Comments Source NO KNOWN ALLERGIE S Drug Class Active [facility] Social History Social Habit Start Date Stop Date Quantity Comments Source Sex Assigned At [facility] Exposure to SARS-CoV-2 (event) Not sure [facility] Smoking Status Start Date Stop Date Source [facility] Medic[facility] Ordered Medication Name Filled Medication Name Start Date Stop Date Current Medication? Ordering Clinician Indication Dosage Frequency Signature (SIG) Comments Components Source traMADoL (ULTRAM) tablet 50 mg 12-25 01:30: 00 12-25 00:31 :00 No 50mg 50 mg, Oral, ONCE NOW, 1 dose, Tue12/24/20 at 1930, Routine [facility] traMADoL 50 mg tablet 12-24 00:00: 00 Yes [id number] 50mg Take 1 tablet by mouth every 6 (six) hours as needed for Pain (scale 7-10). Indication s: acute pain [facility] dicyclomine 10 mg capsule 12-24 00:00: 00 Yes [id number] 10mg Take 1 capsule by mouth 4 (four) times daily. [facility] KCL 20 mEq/15 mL solution 40 mEq 2019-11 15:00: 00 Yes 40meq 40 mEq, Oral, DAILY, First dose on Tue10/27/20 at 0900, Until Discontinu ed, SARAN [facility] potassium chloride in water 10 mEq/100 mL RTU 10 mEq 2019-11 02:00: 00 10-27 03:54 :00 No 10meq 10 mEq, IV Piggyback, Q1H, 2 doses, First dose on 10/26/20 at 2000, Last dose on Tue10/26/20 at 2100, 100 mL [facility] iohexol (OMNIPAQUE 350 BULK-100 mL) injection 120 mL 2019-11 01:00: 00 10-27 00:48 :00 No 120mL 120 mL, Intravenou s, ONCE, 1 dose, 10/26/20 at 1900, Routine [facility] morpHINE injection 4 mg 2019-11 00:45: 00 10-27 00:00 :00 No 4mg 4 mg, Slow IV Push, ONCE, 1 dose, 10/26/20 at 1845, STAT [facility] ondansetron (ZOFRAN (PF)) injection 4 mg 2019-11 00:45: 00 10-26 23:59 :00 No 4mg 4 mg, Slow IV Push, ONCE, 1 dose, 10/26/20 at 1845, SARAN [facility] traMADoL (ULTRAM) 50 mg tablet 2019-11 00:00: 00 Yes [id number] 50mg Take 1 tablet by mouth every 6 (six) hours as needed for Pain (scale 7-10). Indication s: acute pain [facility] ondansetron (ZOFRAN) 4 mg tablet 2019-11 00:00: 00 Yes [id number] 4mg Take 1 tablet by mouth every 8 (eight) hours as needed for Nausea and Vomiting (N/V). [facility] Vital Signs Vital Name Observation Time Observation Value Comments S ource Heart rate 2020-12-25 00:35:00 88 /min [facility] Systolic blood pressure 2020-12-24 22:47:00 105 mm[Hg] [facility] Diastolic blood pressure 2020-12-24 22:47:00 89 mm[Hg] [facility] Body temperature 2020-12-24 22:47:00 37.39 [facility] Respiratory rate 2020-12-24 22:47:00 16 /min [facility] Body height 2020-12-24 22:47:00 165.1 cm [facility] Body weight 2020-12-24 22:47:00 53.978 kg [facility] BMI 2020-12-24 22:47:00 19.80 kg/m2 [facility] Oxygen saturation in Arterial blood by Pulse oximetry 2020-12-24 22:47:00 99 /min [facility] Heart rate 2020-12-25 00:35:00 88 /min [facility] Systolic blood pressure 2020-12-24 22:47:00 105 mm[Hg] [facility] Diastolic blood pressure 2020-12-24 22:47:00 89 mm[Hg] [facility] Body temperature 2020-12-24 22:47:00 37.39 [facility] Respiratory rate 2020-12-24 22:47:00 16 /min [facility] Body height 2020-12-24 22:47:00 165.1 cm [facility] Body weight 2020-12-24 22:47:00 53.978 kg [facility] BMI 2020-12-24 22:47:00 19.80 kg/m2 [facility] Oxygen saturation in Arterial blood by Pulse oximetry 2020-12-24 22:47:00 99 /min [facility] Oxygen saturation in Arterial blood by Pulse oximetry 2020-10-27 05:21:00 100 /min [facility] Systolic blood pressure 2020-10-27 05:21:00 120 mm[Hg] [facility] Diastolic blood pressure 2020-10-27 05:21:00 83 mm[Hg] [facility] Heart rate 2020-10-27 05:21:00 78 /min [facility] Respiratory rate 2020-10-27 05:21:00 18 /min [facility] Body temperature 2020-10-26 23:04:00 37.22 [facility] Body weight 2020-10-26 23:04:00 54.432 kg [facility] Procedures Procedure Date / Time Performed Performing Clinician Source CONSENT/REFUSAL FOR DIAGNOSIS AND TREATMENT 2020-12-24 22:37:54 Doctor Unassigned, [place] [facility] US GALL BLADDER 2020-10-27 04:32:33 [facility] 2020-10-27 03:17:00 Sim Lorenzana [facility] HB ABO GROUPING 2020-10-27 02:55:00 [facility] COVID-19 (ID NOW RAPID TESTING) 2020-10-27 02:15:00 Lisa Hernandez [facility] ACETAMINOPHEN 2020-10-27 01:40:00 Sim Lorenzana [facility] CT ABDOMEN PELVIS W CONTRAST 2020-10-27 00:53:15 Sim Lorenzana [facility] POCT TEST 2020-10-27 00:04:00 Aquiles Lorenzana [facility] URINALYSIS 2020-10-27 00:02:00 Sim Lorenzana [facility] CBC WITH DIFF 2020-10-26 23:52:00 Sim Lorenzana [facility] LIPASE 2020-10-26 23:51:00 Sim Lorenzana [facility] HEPATIC FUNCTION PANEL (80379) (ALB,T.PRO,BILI T,BU/BC,ALT,AST,ALK PHOS) 2020-10-26 23:51:00 Sim Lorenzana [facility] BASIC METABOLIC PANEL (NA, K, CL, CO2, GLUCOSE, BUN, CREATININE, CA) 2020-10-26 23:51:00 Sim Lorenzana [facility] ETHANOL 2020-10-26 23:51:00 Sim Lorenzana [facility] PROTHROMBIN TIME / INR 2020-10-26 23:51:00 Yusef Lorenzana [facility] ACTIVATED PARTIAL THRMPLAS RUBÉN 2020-10-26 23:51:00 Sim Lorenzana [facility] EBV-MONONUCLEOSIS SCREEN 2020-10-26 23:51:00 Mariluz Lorenzana [facility] N-TERMINAL PRO-BNP 2020-10-26 23:51:00 Sim Lorenzana [facility] NOTICE OF PRIVACY PRACTICES 2020-10-26 22:50:27 Doctor Unassigned, [place] [facility] CONSENT/REFUSAL FOR DIAGNOSIS AND TREATMENT 2020-10-26 22:49:26 Doctor Unassigned, [place] [facility] Encounters Start Date/Time End Date/Time Encounter Type Admission Type Attending [facility] Care Facility Care Department Encounter ID Source 2020-12-24 16:49:00 2020-12-24 18:54:00 Emergency CamargoGarrett snydern [facility] [id number] 2020-12-24 16:49:00 2020-12-24 18:54:00 Emergency Garrett Camargon Erin [facility] [id number] [facility] 2020-12-24 16:39:00 2020-12-24 16:39:00 Emergency X [facility] ERT [id number] [facility] 2020-12-24 00:00:00 2020-12-24 00:00:00 Orders Only Doctor Unassigned, [place] [facility] [id number] [facility] 2020-10-26 17:23:00 2020-10-27 00:07:00 Emergency Sim Lorenzana Wakili S [facility] [id number] [facility] 2020-10-26 17:23:00 2020-10-27 00:07:00 Emergency X LISA HERNANDEZ [facility] ERT [id number] [facility] Results Test Description Test Time Test Comments Results Result Comments Source US GALL BLADDER 05:40:24 No sonographic evidence of cholelithiasis, cholecystitis, or biliary ductaldilatation. Hepatic steatosis. Preliminary Report Dictated [...] howeverlimited visualization secondary to overlying bowel gas. [facility], Radiant Results Inft User - 10/26/2020 11:41 [...] this study and agree with the abovereport. [facility] CT ABDOMEN PELVIS W CONTRAST 05:13:48 No acute abdominopelvic process. Preliminary Report Dictated by Resident: Deborah Jordan I, Remberto Rosa MD., have reviewed this study and agree [...] No suspicious lytic or sclerotic bony lesions. [facility], Radiant Results Inft User - 10/26/2020 11:14 [...] this study and agree with the abovereport. [facility] [id number] 03:33:09* Test Item Value Reference Range Interpretation Comme nts ABO & RH (test code = 20) O Positive Performed at [facility] B Laboratory Services - [facility] Blood [address] [place] [id number] Free: [phone] No. 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 It is used under Emergency Use [...] patient testing if clinically indicated. Lab Interpretation (test code = 06968-3) Normal [facility]2020-12-07 02:19:00* Test Item Value Reference Range Interpretation Comme nts ACETAMINOP (test code = 3692366971) <10.0 10-30 L YURIDIA (test code = YURIDIA) Toxic: Greater rosalie n 200 ug/mL @ 4 hour post ingestion or greater than 50 ug/mL @ 12 hour post ingestion Lab Interpretation (test code = 32731-6) Abnormal [facility]2020-12-07 01:34:00* Test Item Value Reference Range Interpretation Comme nts ALCOHOL (test code = 5067948375) <10 mg/dL YURIDIA (test code = YURIDIA) <10 Qwcizabx43-007 Toxic>100 Depression of ARCHITECTURAL DRAFTSPERSON>400 Fatalities Reported [facility]2020-[facility]-07 01:00:00* Test Item Value Reference Range Interpretation Comme nts APPEARANCE (test code = 8274647634) Hazy Clear A COLOR (test code = 5475967038) Katelyn Yellow A PH (test code = 3847956202) 4.8-8.0 SP GRAVITY (test code = 5383662090) 1.003-1.030 H GLU U QUAL (test code = 7218714480) Normal Normal BLOOD (test code = 4020790830) Negative Negative KETONES (test code = 3675304717) 80 mg/dL Negative A PROTEIN (test code = 2887-8) 100 mg/dL Negative A UROBILIN (test code = 5528843274) 4.0 mg/dL Normal A BILIRUBIN (test code = 6492648097) 2 mg/dL Negative A NITRITE (test code = 8728655922) Negative Negative LEUK LUIS (test code = 7043200336) Negative Negative RBC/HPF (test code = 2684239685) See_Comment [Automated MovieLine[employer] ge] The system which generated this result transmitted reference range: 0 - 3 HPF. The reference range was not used to interpret this result as normal/abnormal. WBC/HPF (test code = 1527972783) See_Comment [Automated Movie[employer] ge] The system which generated this result transmitted reference range: 0 - 5 HPF. The reference range was not used to interpret this result as normal/abnormal. BACTERIA (test code = 8774717254) Few Negative A MUCOUS (test code = 8380101533) Marked Negative LPF A SQ EPITH (test code = 9231464497) HPF Lab Interpretation (test code = 15479-4) Abnormal [facility]-MONONUCLEOSIS [id number] 00:48:00* Test Item Value Reference Range Interpretation Comme nts EBV Mononucleosis Screen (te st code = 4554219491) Negative Negative Lab Interpretation (test cod e = 27230-1) Normal [facility]AL [id number] 00:27:00* Test Item Value Reference Range Interpretation Comme nts NT-proBNP (test code = 9474586504) 101 pg/mL See_Comment [Automated message] The system which generated this result transmitted reference range: <=125. The reference range was not used to interpret this result as normal/abnormal. YURIDIA (test code = YURIDIA) Biotin has been reported to cause a negative bias, interpret results relative to patient's use of biotin. Lab Interpretation (test code = 57542-8) [facility] (NA, K, CL, CO2, GLUCOSE, BUN, CREATININE, CA)2020-10-27 00:20:00* Test Item Value Reference Range Interpretation Comme nts NA (test code = 3441106575) 128 mmol/L 135-145 L K (test code = 0378186211) 2.8 mmol/L 3.5-5 LL CL (test code = 2501593049) 84 mmol/L 98-108 L CO2 TOTAL (test code = 6829227884) 33 mmol/L 23-31 H AGAP (test code = 8637972384) 2-16 BUN (test code = 7645838523) 16 mg/dL 7-23 GLUCOSE (test code = 2131550737) 112 mg/dL 70-110 H CREATININE (test code = 9007241550) 0.72 mg/dL 0.5-1.04 CALCIUM (test code = 6266140611) 9.7 mg/dL 8.6-10.6 eGFR Calculation (Non-) (test code = 5340882084) mL/min/1.73m2 eGFR Calculation () (test code = 0237749846) mL/min/1.73m2 YURIDIA (test code = YURIDIA) Association of [...] or abnormalities in imaging tests). Lab Interpretation (test code = 88602-5) [facility]normal [facility] (ALB, T.PRO, BILI T, BU/BC, ALT, AST, ALK PHOS)2020-10-27 00:18:00* Test Item Value Reference Range Interpretation Comme nts TOTAL BILI (test code = 4709144595) 1.8 mg/dL 0.1-1.1 H BILI UNCON (test code = 4890887840) 1.1 mg/dL 0.1-1.1 BILI CONJ (test code = 6409471625) 0.0 mg/dL 0-0.3 T PROTEIN (test code = 9111276290) 8.0 g/dL 6.3-8.2 ALBUMIN (test code = 2132205699) 4.5 g/dL 3.5-5 ALK PHOS (test code = 9722546508) 151 U/L 34-122 H ALTv (test code = 1742-6) 113 U/L 5-35 H AST(SGOT) (test code = 7448278232) 290 U/L 13-40 H Lab Interpretation (test cod e = 93184-2) Abnormal [facility] AllenLip[facility] [id number] 00:18:00* Test Item Value Reference Range Interpretation Comme nts LIPASE (test code = 9929926364) 95 U/L 0-220 Lab Interpretation (test cod e = 52912-9) Normal [facility]enaPTT2020-12-07 00:14:00* Test Item Value Reference Range Interpretation Comme nts APTT Patient (test code = 3173-2) See_Comment [Automated message] The system which generated this result transmitted reference range: 23 - 38 Seconds. The reference range was not used to interpret this result as normal/abnormal. YURIDIA (test code = YURIDIA) The [facility] patient population mean normal value for aPTT is 30 seconds. Lab Interpretation (test code = 72256-6) Normal [facility] AllenProthrombin Time (PT) / [id number] 00:12:00 * Test Item Value Reference Range Interpretation Comme [facility] PROTIME PATIENT (test code = 5964-2) See_Comment [Automated MovieLine[employer] ge] The system which generated this result transmitted reference range: 12.0 - 14.7 Seconds. The reference range was not used to interpret this result as normal/abnormal. INR (test code = 6301-6) Normal INR <1.1; Warfarin Therapeutic range 2.0 to 3.0 or 2.5 to 3.5, depending upon the indications. Lab Interpretation (test code = 54622-2) Normal [facility]CB with [id number] 00:05:00* Test Item Value Reference Range Interpretation Comme [facility] WBC (test code = 6690-2) See_Comment [Automated Movie[employer] Heverest.ru] The system which generated this result transmitted reference range: 4.30 - 11.10 10*3/?L. The reference range was not used to interpret this result as normal/abnormal. RBC (test code = 789-8) See_Comment [Automated Movie[employer] ge] The system which generated this result transmitted reference range: 3.93 - 5.25 10*6/?L. The reference range was not used to interpret this result as normal/abnormal. HGB (test code = 718-7) 14.5 g/dL 11.6-15 HCT (test code = 4544-3) 38.8 % 35.7-45.2 MCV (test code = 787-2) 94.2 fL 80.6-95.5 MCH (test code = 785-6) 35.2 pg 25.9-32.8 H MCHC (test code = 786-4) 37.4 g/dL 31.6-35.1 H RDW-SD (test code = 89448-1) 35.8 fL 39-49.9 L RDW-CV (test code = 788-0) 10.5 % 12-15.5 L PLT (test code = 777-3) See_Comment [Automated Movie[employer] ge] The system which generated this result transmitted reference range: 166 - 358 10*3/?L. The reference range was not used to interpret this result as normal/abnormal. MPV (test code = 96511-7) 9.7 fL 9.5-12.9 NRBC/100 WBC (test code = 3796348657) See_Comment [Automated me ssage] The system which generated this result transmitted reference range: 0.0 - 10.0 /100 WBCs. The reference range was not used to interpret this result as normal/abnormal. NRBC x10^3 (test code = 7679322925) <0.01 See_Comment [Automated messa ge] The system which generated this result transmitted reference range: 10*3/?L. The reference range was not used to interpret this result as normal/abnormal. GRAN MAT (NEUT) % (test code = 770-8) 78.9 % IMM GRAN % (test code = 9003535609) 0.30 % LYMPH % (test code = 736-9) 10.5 % MONO % (test code = 5905-5) 9.8 % EOS % (test code = 713-8) 0.2 % BASO % (test code = 706-2) 0.3 % GRAN MAT x10^3(ANC) (test code = 2159119890) 4.74 10*3/uL 1.88-7.09 IMM GRAN x10^3 (test code = 1985359224) <0.03 0-0.06 LYMPH x10^3 (test code = 731-0) 0.63 10*3/uL 1.32-3.29 L MONO x10^3 (test code = 742-7) 0.59 10*3/uL 0.33-0.92 EOS x10^3 (test code = 711-2) <0.03 0.03-0.39 L BASO x10^3 (test code = 704-7) <0.03 0.01-0.07 Lab Interpretation (test code = 58143-9) Abnormal [facility] [id number] 00:04:00* Test Item Value Reference Range Interpretation Comme nts POCT PREG (test code = 1605) Negative On board controls acceptable with C Line (test code = 3574) Present POCT PREG LOT # (test code = 3575) [id number] POCT PREG TEST DATE ( test code = 3576) 02/18/2022 Lab Interpretation (test cod e = 98632-8) Normal [facility]"
[2025-02-04 13:11] LABS: Absolute Basophils 0.1 K/uL (0-0.5); Absolute Eosinophils 0.2 K/uL (0-0.5); Absolute Lymphocytes (CBC) 1.3 K/uL (0.7-4.9); Absolute Monocytes 0.5 K/uL (0.1-1.3); Absolute Neutrophil 3.5 K/uL (1.8-8.0); Eosinophils % 3.2 % (0-4.4); Hematocrit 40.8 % (36.0-45.0); Hemoglobin 14.4 g/dL (12.0-15.0); Lymphocytes % 22.8 % (15.3-44.8); MCH 31.6 pg (27.0-35.0); MCHC 35.2 g/dL (32.0-36.0); MCV 89.8 fL (80-100); MPV 7.7 fL (7.6-11.3); Nucleated Red Blood Cells % 0.2 % (0-0); Platelets 185 thou/uL (152-406); RBC Red Blood Cell Count 4.55 M/uL (3.86-4.86); Red Cell Distribution Width 11.8 % (12.1-15.2)
[2025-02-04 13:32] LABS: Anion Gap 8.8 mEq/L (5.0-15.0); BUN Blood Urea Nitrogen 9 mg/dL (7-18); Bicarbonate 28 mEq/L (21-32); Glomerular Filtration Rate 119 ml/min (=/>90); Glucose Level 106 mg/dL (74-106); Potassium 3.8 mEq/L (3.5-5.1); Sodium Level 137 mEq/L (136-145)
[2025-02-04 13:33] LABS: Troponin High Sensitivity < 3.0 pg/mL (<58.9)
--- NOTE | 2025-02-04 13:49 | EDPHYS ---
Physician Documentation [facility] Name: Krysta Barrera Age: 39 yrs Sex: Female : 1985 Arrival Date: 02/04/2025 Time: 12:01 Bed 13 Private MD: ED Physician Fabrizio Kemp HPI: 02/04 13:46 This 39 yrs old Female presents to ER via Wheelchair with complaints of Leg ms3 weakness, Finger Numbness. 13:46 39-year-old female past medical history of anemia, gastric ulcers, GERD, seizures ms3 presents to the emergency department for generalized weakness and dizziness that began in October. Patient states she has taken vitamins without relief of her symptoms. Patient denies pain. Patient denies nausea, vomiting, shortness of breath.. 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 - Infectious Disease History:: Denies. - Social history:: Smoking status: Patient reports the use of cigarette tobacco products, denies chronic smoking, but will smoke occasionally. ROS: 13:46 Constitutional: Negative for fever, and chills. Cardiovascular: Negative for chest ms3 pain, and palpitations. Respiratory: Negative for shortness of breath, cough, wheezing, and pleuritic chest pain, Abdomen/GI: Negative for abdominal pain, nausea, vomiting, diarrhea, and constipation, 13:46 MS/extremity: Positive for generalized weakness, Exam: 13:46 Constitutional: This is a well developed, well nourished patient who is awake, alert, ms3 and in no acute distress. Cardiovascular: Regular rate and rhythm with a normal S1 and S2. No gallops, murmurs, or rubs. Normal PMI, no JVD. No pulse deficits. Respiratory: Lungs have equal breath sounds bilaterally, clear to auscultation and percussion. No rales, rhonchi or wheezes noted. No increased work of breathing, no retractions or nasal flaring. Abdomen/GI: Soft, non-tender, with normal bowel sounds. No distension or tympany. No guarding or rebound. No evidence of tenderness throughout. Skin: Warm, dry with normal turgor. Normal color with no rashes, no lesions, and no evidence of cellulitis. MS/ Extremity: Pulses equal, no cyanosis. Neurovascular intact. Full, normal range of motion. Neuro: Awake and alert, GCS 15, oriented to person, place, time, and situation. Cranial nerves II-XII grossly intact. Motor strength 5/5 in all extremities. Sensory grossly intact. Cerebellar exam normal. Normal gait. 13:57 ECG was reviewed by the Attending Physician. ms3 Vital Signs: 12:29 BP 92 / 70; Pulse 93; Resp 17; Temp 98.1; Pulse Ox 100% ; Weight 61.23 kg; Height 5 ft. ll1 5 in. ; Pain 2/10; 13:10 BP 103 / 85; Pulse 85; Resp 17; Pulse Ox 99% ; me1 14:00 BP 107 / 74; Pulse 79; Resp 18; Pulse Ox 98% ; me1 12:29 Body Mass Index 22.46 (61.23 kg, 165.1 cm) ll1 12:29 Pain Scale: Adult ll1 MDM: 12:28 Medical Screening Exam initiated ms3 13:46 Differential Diagnosis Hypokalemia vs Hyponatremia vs anemia vs ACS. Data reviewed: ms3 vital signs, nurses notes, lab test result(s), EKG, and as a result, I will discharge patient. Independent interpretation of the following test(s) in the Emergency Department EKG: See my EKG interpretation above. Counseling: I had a detailed discussion with the patient and/or guardian regarding the historical points, exam findings, and any diagnostic results supporting the discharge/admit diagnosis, lab results, the need for outpatient follow up, to return to the emergency department if symptoms worsen or persist or if there are any questions or concerns that arise at home. Special discussion: I discussed with the patient/guardian in detail that at this point there is no indication for admission to the hospital. It is understood, however, that if the symptoms persist or worsen the patient needs to return immediately for re-evaluation. ED course: Reviewed labs with patient. Sodium normal, potassium normal. Kidney function normal. Patient is without anemia. Patient to follow-up with primary care physician 2 to 3 days. Patient understands and agrees with plan. All questions were answered. Return precautions discussed include worsening symptoms, or any other concerns.. 02/04 12:28 Order name: Basic Metabolic Panel; Complete Time: 13:36 ms3 02/04 12:28 Order name: CBC with Diff; Complete Time: 13:36 ms3 02/04 12:28 Order name: Troponin HS; Complete Time: 13:36 ms3 02/04 12:28 Order name: Cardiac monitoring; Complete Time: 13:07 ms3 02/04 12:28 Order name: EKG - Nurse/Tech; Complete Time: 13:07 ms3 02/04 12:28 Order name: IV Saline Lock; Complete Time: 13:07 ms3 02/04 12:28 Order name: Labs collected and sent; Complete Time: 13:07 ms3 02/04 12:28 Order name: O2 Per Protocol; Complete Time: 13:07 ms3 02/04 12:28 Order name: O2 Sat Monitoring; Complete Time: 13:07 ms3 EC:57 Rate is 82 beats/min. Rhythm is regular. QRS [place] is Normal. [place] interval is normal. QRS ms3 interval is normal. Clinical impression: Normal ECG. Interpreted by me. Reviewed by me. Administered Medications: No medications were administered Disposition Summary: 02/04/25 13:48 Discharge Ordered Notes: Location: Home ms3 Condition: Stable ms3 Diagnosis - Muscle weakness (generalized) ms3 Followup: ms3 - With: Mayank Jimenez MD - When: 2 - 3 days - Reason: Recheck today's complaints Discharge Instructions: - Discharge Summary Sheet ms3 - Weakness ms3 Forms: - Medication Reconciliation Form ms3 - Antibiotic Education ms3 - Prescription Opioid Use ms3 - Patient Portal Instructions ms3 - Leadership Thank You Letter ms3 Signatures: Dispatcher [employer] Lyric Sanderson, RN RN ll1 Fabrizio Kemp DO DO ms3 Britni Teran, RN RN me1
--- NOTE | 2025-02-04 13:49 | ER ---
Nurse's Notes [facility] Name: Krysta Barrera Age: 39 yrs Sex: Female : 1985 Arrival Date: 02/04/2025 Time: 12:01 Bed 13 Private MD: Diagnosis: Muscle weakness (generalized) Presentation: 02/04 12:29 Chief complaint: Patient states: B leg weakness since October. B finger numbness ll1 off/on for 3 weeks. Coronavirus screen: Client denies travel out of the [place] in the last 14 days. At this time, the client does not indicate any symptoms associated with coronavirus-19. Ebola Screen: Patient denies travel to an Ebola-affected area in the 21 days before illness onset. Initial Sepsis Screen: Does the patient meet any 2 criteria? No. Patient's initial sepsis screen is negative. Does the patient have a suspected source of infection? No. Patient's initial sepsis screen is negative. Risk Assessment: Do you want to hurt yourself or someone else? Patient reports no desire to harm self or others. Onset of symptoms was November 04, 2024. 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 - Infectious Disease History:: Denies. - Social history:: Smoking status: Patient reports the use of cigarette tobacco products, denies chronic smoking, but will smoke occasionally. Screenin:26 [facility] ED Fall Risk Assessment (Adult) History of falling in the last 3 months, me1 including since admission No falls in past 3 months (0 pts) Confusion or Disorientation No (0 pts) Intoxicated or Sedated No (0 pts) Impaired Gait Yes (1 pt) Mobility Assist Device Used Yes (1 pt) Altered Elimination No (0 pt) Score/Fall Risk Level 0 - 2 = Low Risk Maintained a safe environment, Provided non-skid footwear, Hourly rounding (assess needs \T\ fall precautionary measures) done. Abuse screen: Denies threats or abuse. Nutritional screening: No deficits noted. Tuberculosis screening: No symptoms or risk factors identified. Assessment: 13:26 General: Appears in no apparent distress. Behavior is calm, cooperative, appropriate me1 for age, Reports B leg weakness since October. B finger numbness off/on for 3 weeks. Pain: Denies pain. Neuro: Level of Consciousness is awake, alert, obeys commands, Oriented to person, place, time, situation, Appropriate for age. Cardiovascular: Patient's skin is warm and dry. Respiratory: Airway is patent Respiratory effort is even, unlabored, Respiratory pattern is regular, symmetrical. GI: No signs and/or symptoms were reported involving the gastrointestinal system. : No signs and/or symptoms were reported regarding the genitourinary system. EENT: No signs and/or symptoms were reported regarding the EENT system. Derm: Skin is intact, is healthy with good turgor, Skin is pink, warm \T\ dry. Musculoskeletal: Reports numbness in right hand, left hand, right leg and left leg. Vital Signs: 12:29 BP 92 / 70; Pulse 93; Resp 17; Temp 98.1; Pulse Ox 100% ; Weight 61.23 kg; Height 5 ft. ll1 5 in. ; Pain 2/10; 13:10 BP 103 / 85; Pulse 85; Resp 17; Pulse Ox 99% ; me1 14:00 BP 107 / 74; Pulse 79; Resp 18; Pulse Ox 98% ; me1 12:29 Body Mass Index 22.46 (61.23 kg, 165.1 cm) ll1 12:29 Pain Scale: Adult ll1 ED Course: 12:07 Patient arrived in ED. mr 12:21 Fabrizio Kemp DO is Attending Physician. ms3 12:30 Triage completed. ll1 12:30 Arm band placed on. ll1 12:58 Britni Teran, RN is Primary Nurse. me1 13:07 Basic Metabolic Panel Sent. me1 13:07 CBC with Diff Sent. me1 13:07 Troponin HS Sent. me1 13:07 Initial lab(s) drawn, by me, sent to lab. EKG done, by ED staff, reviewed by Fabrizio Kemp DO. Inserted saline lock: 22 gauge in right antecubital area, using aseptic technique. 13:26 Patient has correct armband on for positive identification. Bed in low position. Call me1 light in reach. Side rails up X2. Provided Education on: POC. Verbalized understanding.. Client placed on continuous cardiac and pulse oximetry monitoring. NIBP monitoring applied. chemical lab supervisor on. Pulse ox on. NIBP on. 13:26 No provider procedures requiring assistance completed. me1 13:48 Mayank Jimenez MD is Referral Physician. ms3 14:17 IV discontinued, intact, bleeding controlled, No redness/swelling at site. Pressure me1 dressing applied. Administered Medications: No medications were administered Medication: :26 VIS not applicable for this client. me1 Outcome: 13:48 Discharge ordered by . ms3 14:17 Discharged to home via wheelchair, with family, me1 14:17 Condition: stable 14:17 Discharge instructions given to patient, Instructed on discharge instructions, follow up and referral plans. Demonstrated understanding of instructions, follow-up care, 14:18 Patient left the ED. me1 Signatures: Karina Garza, Reg Reg mr Lyric Morris, RN RN ll1 Fabrizio Kemp DO DO ms3 Britni Teran, RN RN me1 Corrections: (The following items were deleted from the chart) 12:59 12:29 Chief complaint: Patient states: B leg weakness since October. B finger numbness me1 off/on for 3 weeks. 1 13:25 12:29 Chief complaint: Patient states: B leg weakness since October. B finger numbness me1 off/on for 3 weeks. me1
[2025-02-04 14:22] VITALS: TEMP 98.1
[2025-02-04 14:24] VITALS: BP 107/74; O2SAT 98
--- NOTE | 2025-02-06 12:37 | EKG ---
Test Date: 2025-02-04 Test Time: 13:05:05 Monitor Car Operator: BONIFACIO MEASUREMENT RESULTS: Intervals: Rate: 82 VA: 134 QRSD: 70 QT: 388 QTc: 453 [place]: P: -27 VA: 134 QRS: 40 T: 55 INTERPRETIVE STATEMENTS: Normal sinus rhythm Normal ECG No previous ECG available for comparison Electronically Signed On 02-06-25 12:27:56 CDT by Sudheer Marie
== END 2025-02-04 14:18 | disposition home or self-care (01) ==
LOC: ER 12:01
DX: M62.81 Muscle weakness (generalized) (principal); F17.210 Nicotine dependence, cigarettes, uncomplicated
CPT/HCPCS: 36415; 80048; 84484; 85025; 93005; 99284